=== PATIENT | male | born 1945 | race Two or more races ===

== ENCOUNTER 2017-09-04 12:44 | Inpatient (IN) | payer MEDICARE, OTHER ==
--- NOTE | 2017-09-04 13:38 | PDOC ---
History of Present Illness - General Chief Complaint: Shortness of Breath Stated Complaint: SOB Time Seen by Provider: 09/04/17 13:10 - History of Present Illness Initial Comments: 09/04/17 14:19 The patient is a 72 year old male with a history of HTN, HLD, Afib s/p pacemaker , CAD r/p stenting who presents for evaluation of SOB. The patient reports worsening SOB at rest and dyspnea on exertion over the past 2-3 days prompting his presentation to the ED for evaluation. The patient otherwise denies fevers , chills, chest pain, nausea, vomiting, abdominal pain, leg swelling, recent long travel, or changes with urination or bowel movements. Past History - Past Medical History Allergies/Adverse Reactions: Allergies Allergy/AdvReac Type Severity Reaction Status Date / Time No Known Allergies Allergy Verified 09/04/17 12:51 Home Medications: Ambulatory Orders Digoxin [Lanoxin -] 0.25 mg PO DAILY 11/15/12 Metoprolol Succinate [Toprol XL -] 12.5 mg PO DAILY #0 tab.sr.24h 11/18/12 Clopidogrel Bisulfate [Plavix -] 75 mg PO DAILY 12/08/15 Enalapril Maleate [Vasotec -] 10 mg PO DAILY 12/08/15 Hydrochlorothiazide [Hctz -] 25 mg PO DAILY 12/08/15 Warfarin Sodium [Coumadin] 4 mg PO DAILY 12/08/15 Cardiac Disorders: Yes COPD: No - Surgical History Cardiac Surgery: Yes (PACEMAKER, STENTS) - Immunization History Immunization Up to Date: Yes - Suicide/Smoking/Psychosocial Hx Smoking Status: No Smoking History: Never smoked Number of Cigarettes Smoked Daily: 0 Hx Alcohol Use: No Drug/Substance Use Hx: No Substance Use Type: None Review of Systems - Review of Systems Comments:: 09/04/17 14:22 Constitutional: No fevers, chills, fatigue, malaise HEENT: No Rhinorrhea, nasal congestion, visual changes Cardiovascular: No chest pain, syncope, palpitations, lightheadedness Respiratory: SOB. No Cough, Hemoptysis, Gastrointestinal: No Abdominal pain, Nausea, Vomiting, Constipation, Diarrhea, Melena Genitourinary: No Dysuria, Frequency, Urgency, Hesitancy, Hematuria, Flank pain Musculoskeletal: No Myalgia, arthralgia Skin: No rashes, itching, bruising, pallor Neurologic: No Headache, Dizziness, Numbness, Weakness, or Tingling Psychiatric: No Hallucinations. No SI or HI *Physical Exam - Vital Signs Last Vital Signs Temp Pulse Resp BP Pulse Ox 97.4 F L 119 H 20 143/95 98 09/04/17 12:51 09/04/17 12:51 09/04/17 12:51 09/04/17 12:51 09/04/17 12:51 - Physical Exam Comments: 09/04/17 14:24 General Appearance: Nourished. No Apparent Distress HEENT: EOMI, CRISTIAN. No Pharyngeal Erythema, Tonsillar Exudate, Tonsillar Erythema Neck: No Cervical Lymphadenopathy Respiratory/Chest: Lungs Clear, Normal Breath Sounds. No Crackles, Rales, Rhonchi, Wheezing Cardiovascular: Regular Rhythm, Tachycardic Rate. No Murmur, Gallops, Rubs Gastrointestinal/Abdominal: Normal Bowel Sounds, Soft. No Guarding, Rebound, Tenderness Musculoskeletal: No CVA Tenderness Extremity: Normal Capillary Refill Integumentary: Normal Color, Dry, Warm Neurologic: Fully Oriented, Alert, Normal Mood/Affect, Normal Response, Heart Score/ECG Review #1 ECG reviewed & interpreted by me at: 14:25 (Biventricularly paced rhythm at a rate of 120) General ECG Interpretation: Normal Intervals, No acute ischemic changes ED Treatment Course - LABORATORY CBC & Chemistry Diagram: 09/04/17 13:55 09/04/17 13:55 - RADIOLOGY Radiology Studies Ordered: Category Date Time Status CHEST X-RAY PORTABLE* [RAD] Stat Radiology 09/04/17 13:37 Ordered Medical Decision Making - Medical Decision Making 09/04/17 14:26 The patient is a 72 year old male with a history of HTN, HLD, Afib s/p pacemaker , CAD r/p stenting who presents for evaluation of SOB. Differential includes but is not limited to: ACS, Arrhythmia, Pneumonia, Pacer malfunction, infectious , metabolic derangement. Given the patient's symptoms, we will obtain a cbc, cmp, troponin, chest plain film and EKG to evaluate further. We will continue to monitor and reassess. *DC/Admit/Observation/Transfer Diagnosis at time of Disposition: SOB (shortness of breath), Tachycardia - Discharge Dispostion Condition at time of disposition: Stable Admit: Yes - Referrals Referrals: Bharat Archer MD [Primary Care Provider] - - Patient Instructions - Post Discharge Activity
[2017-09-04 14:07] LABS: BASO % 0.6 % (0-2.0); EOS % 0.5 % (0-4.5); HEMATOCRIT 46.8 % (35.4-49); HEMOGLOBIN 15.7 GM/dL (11.7-16.9); LYMPH % 21.3 % (8-40); MCH 29.7 pg (25.7-33.7); MCHC 33.6 g/dl (32.0-35.9); MEAN CELL VOLUME 88.2 fl (80-96); MEAN PLT VOLUME 9.7 fl (7.5-11.1); MONO % 10.5 % (3.8-10.2); NEUT % 67.1 % (42.8-82.8); PLATELET COUNT 147 K/MM3 (134-434); RBC 5.31 M/mm3 (4.00-5.60); RDW 15.6 % (11.9-15.9); WHITE BLOOD COUNT 6.7 K/mm3 (4.0-10.0)
[2017-09-04 14:31] LABS: ALBUMIN 3.4 g/dl (3.4-5.0); ANION GAP 9 (8-16); BLOOD UREA NITROGEN 24 mg/dL (7-18); CALCIUM 8.3 mg/dL (8.5-10.1); CHLORIDE 108 mmol/L (98-107); CO2 21 mmol/L (21-32); GLUCOSE,RANDOM 121 mg/dL (74-106); SODIUM 138 mmol/L (136-145)
[2017-09-04 14:37] LABS: ALK PHOS 104 U/L (45-117); BILIRUBIN,TOTAL 0.7 mg/dL (0.2-1.0); CREATININE 0.9 mg/dL (0.7-1.3); N-TERMINAL BNP 6066.45 pg/ml (5-125); SGPT/ALT 81 U/L (12-78); TOT PROT 6.8 g/dl (6.4-8.2)
[2017-09-04 14:38] LABS: SGOT/AST 77 U/L (15-37)
[2017-09-04 14:39] LABS: POTASSIUM 4.6 mmol/L (3.5-5.1)
--- NOTE | 2017-09-04 15:08 | EKG ---
Test Reason : Blood Pressure : / mmHG Vent. Rate : 122 BPM Atrial Rate : 150 BPM P-R Int : 000 ms QRS Dur : 178 ms QT Int : 474 ms P-R-T Axes : 000 169 248 degrees QTc Int : 675 ms Ventricular-paced rhythm Biventricular pacemaker detected ABNORMAL ECG WHEN COMPARED WITH ECG OF 08-DEC-2015 10:43, VENT. RATE HAS INCREASED BY 56 BPM Confirmed by JUANITA DIAZ MD ([id number]) on 09/04/2017 3:07:55 PM Referred By: Confirmed By:JUANITA DIAZ MD
[2017-09-04 16:29] LABS: INR 3.01 (0.82-1.09)
--- NOTE | 2017-09-04 16:29 | PDOC ---
Attending Attestation - Resident Resident Name: Justin Barnes - ED Attending Attestation I have performed the following: I have examined & evaluated the patient, The case was reviewed & discussed with the resident, I agree w/resident's findings & plan, Exceptions are as noted - HPI HPI: 09/04/17 16:24 "The patient is a 72 year old male, with a significant past medical history of AFib(s/p pacemaker, on Plavix and Coumadin), CAD(s/p stents), and hypertension, who presents to the emergency department with worsening shortness of breath over the past 2 days. Patient reports shortness of breath with exertion and at rest. He denies any associated chest pain, diaphoresis, or palpitations. He denies any abdominal pain, nausea, or vomiting. He denies any recent travel or sick contacts. Assistant Professor Of Biology: Dr. Archer " - Physicial Exam PE: 09/04/17 16:29 "GENERAL: Awake, alert, and fully oriented, in no acute distress HEAD: No signs of trauma EYES: PERRLA, EOMI, sclera anicteric, conjunctiva clear ENT: Auricles normal inspection, hearing grossly normal, nares patent, oropharynx clear without exudates. Moist mucosa NECK: Nontender, no stepoffs, Normal ROM, supple, no lymphadenopathy, JVD, or masses LUNGS: Breath sounds equal, clear to auscultation bilaterally. No wheezes, and no crackles HEART: Regular rate and rhythm, normal S1 and S2, no murmurs, rubs or gallops ABDOMEN: Soft, nontender, normoactive bowel sounds. No guarding, no rebound. No masses EXTREMITIES: Normal range of motion, no edema. No clubbing or cyanosis. No cords, erythema, or tenderness NEUROLOGICAL: Cranial nerves II through XII intact. 5/5 strength and sensation in all extremities, Normal speech, normal gait, normal cerebellar function SKIN: Warm, Dry, normal turgor, no rashes or lesions noted. " - Medical Decision Making 09/04/17 16:30 72 M with SOB. Vitals notable for tachycardia ~120. EKG shows paced rhythm at rate of 120. Concerning for possible pacemaker mediated tachycardia. Pt will need pacer interrogated. Will also evaluate for other cardiac pathology. - Labs, trop, BNP - CXR - Pacemaker interrogation 09/04/17 17:15 Pt with elevated troponin 0.19 (has chronically elevated trop at baseline ~0.18) , elevated BNP Pt to be admitted for trending of trops, echo, and pacemaker interogation Case discussed in detail with admitting physician including history, physical exam and ancillary studies. Admitting physician has assumed care for the patient and will follow all pending diagnostics and complete the evaluation and treatment.
--- NOTE | 2017-09-04 16:42 | HP ---
Admitting History and Physical - Admission History of Present Illness: This is a 72 year old male with pmhx of A fib s/p pacemaker on coumadin in [facility], CAD s/p 2 stents (on plavix, placed in [place]), HTN and presented to the ED with shortness of breath for 2 days. PT was scheduled to have his pacemaker changed last week but it was postponed d/t insurance. He saw his coin counter and wrapper Dr. Archer last week, no reported issues. In the last 2 days he reports increased shortness of breath with ambulation, resting and tachypnea. He denies chest pain, cough, sputum production, lower ext swelling. [employer] Rep called for Pacemaker interrogation History Source: Patient, Family Member Limitations to Obtaining History: No Limitations - Past Medical History Cardiovascular: Yes: CAD, HTN, Hyperlipdemia - Past Surgical History Past Surgical History: Yes: Permanent Pacemaker - Smoking History Smoking history: Never smoked Aproximately how many cigarettes per day: 0 - Alcohol/Substance Use Hx Alcohol Use: No History of Substance Use: reports: None - Social History Usual Living Arrangement: Yes: With Child ADL: Independent History of Recent Travel: No Home Medications - Allergies Allergies/Adverse Reactions: Allergies Allergy/AdvReac Type Severity Reaction Status Date / Time No Known Allergies Allergy Verified 09/04/17 12:51 - Home Medications Home Medications: Ambulatory Orders Digoxin [Lanoxin -] 0.25 mg PO DAILY 11/15/12 Metoprolol Succinate [Toprol XL -] 12.5 mg PO DAILY #0 tab.sr.24h 11/18/12 Clopidogrel Bisulfate [Plavix -] 75 mg PO DAILY 12/08/15 Enalapril Maleate [Vasotec -] 10 mg PO DAILY 12/08/15 Hydrochlorothiazide [Hctz -] 25 mg PO DAILY 12/08/15 Warfarin Sodium [Coumadin] 4 mg PO DAILY 12/08/15 Review of Systems - Review of Systems Constitutional: reports: No Symptoms Eyes: reports: No Symptoms HENT: reports: No Symptoms Neck: reports: No Symptoms Cardiovascular: reports: Shortness of Breath Respiratory: reports: SOB on Exertion Gastrointestinal: reports: No Symptoms Genitourinary: reports: No Symptoms Musculoskeletal: reports: No Symptoms Integumentary: reports: No Symptoms Neurological: reports: No Symptoms Endocrine: reports: No Symptoms Hematology/Lymphatic: reports: No Symptoms Psychiatric: reports: No Symptoms Physical Examination Vital Signs: Vital Signs Temperature 97.4 F L 09/04/17 12:51 Pulse Rate 108 H 09/04/17 15:58 Respiratory Rate 22 09/04/17 15:58 Blood Pressure 133/107 09/04/17 15:58 O2 Sat by Pulse Oximetry (%) 99 09/04/17 15:58 Constitutional: Yes: Well Nourished Eyes: Yes: Conjunctiva Clear HENT: Yes: Atraumatic Neck: Yes: Supple Cardiovascular: Yes: Regular Rate and Rhythm, S1, S2 Respiratory: Yes: Regular, CTA Bilaterally Gastrointestinal: Yes: Normal Bowel Sounds, Soft Renal/: Yes: WNL Musculoskeletal: Yes: WNL Extremities: Yes: WNL Edema: No Peripheral Pulses WNL: Yes Neurological: Yes: Alert, Oriented, Cran Nerves II-XII Intact Psychiatric: Yes: Alert, Oriented Labs: CBC, BMP 09/04/17 13:55 09/04/17 13:55 Imaging - Results Chest X-ray: Report Reviewed, Image Reviewed EKG: Report Reviewed (v paced) Problem List - Problems (1) SOB (shortness of breath) Code(s): R06.02 - SHORTNESS OF BREATH (2) Tachycardia Code(s): R00.0 - TACHYCARDIA, UNSPECIFIED Assessment/Plan Assessment: 72 year old male admitted with worsening sob Plan: 1. Acute SOB - Possible misfiring/malfunctioning pacemaker - [employer] rep called, will see pt tomorrow - Monitor on telemetry - Supplemental o2 as needed - Cardiology consulted 2. A fib - Coumadin 4mg HS - Digoxin 0.25mg daily - Toprol xl 12.5mg daily 3. CAD s/p stents, pacemaker - Plavix - BB, RADHA 4. HTN - Vasotec 10mg daily - HCTZ 25mg daily - Visit type - Emergency Visit Emergency Visit: Yes ED Registration Date: 09/04/17 Care time: The patient presented to the Emergency Department on the above date and was hospitalized for further evaluation of their emergent condition. - New Patient This patient is new to me today: Yes Date on this admission: 09/04/17 - Critical Care Critical Care patient: No Hospitalist Screening - Colonoscopy Questionnaire Colonoscopy Questionnaire: Colonoscopy Questionnaire - Patient: 50 - 75 years old and never had a screening colonoscopy: Unknown History of colon or rectal polyps, or CA: Unknown History of IBD, Crohn's disease or UC: Unknown History of abdominal radiation therapy as a child: Unknown - Relative: 1 with colon or rectal CA, or polyps at age 60 or younger: Unknown Colon or rectal CA diagnosed at age 45 or younger: Unknown Multiple relatives with colon or rectal CA: Unknown - Outcome: Screening Result: Negative Screen
[2017-09-04 17:48] VITALS: BMI 20.9
[2017-09-04] MEDS: WARFARIN NA 2 MG TABLET (UD) PO SCH (18:06)
[2017-09-04] MEDS ORDERED: metoPROLOL SUCCINATE 25 MG TAB.SR.24H (FP) PO ONE (18:43)
[2017-09-04] MEDS ORDERED: DIGOXIN 0.25 MG TABLET (FP) PO ONE (18:43)
[2017-09-04] MEDS ORDERED: CLOPIDOGREL BISULFATE 75 MG TABLET (FP) PO ONE (20:00)
[2017-09-05 06:51] LABS: BASO % 0.4 % (0-2.0); EOS % 0.2 % (0-4.5); HEMATOCRIT 45.2 % (35.4-49); HEMOGLOBIN 15.6 GM/dL (11.7-16.9); LYMPH % 17.3 % (8-40); MCH 30.1 pg (25.7-33.7); MCHC 34.5 g/dl (32.0-35.9); MEAN CELL VOLUME 87.2 fl (80-96); MEAN PLT VOLUME 10.2 fl (7.5-11.1); MONO % 10.6 % (3.8-10.2); NEUT % 71.5 % (42.8-82.8); PLATELET COUNT 126 K/MM3 (134-434); RBC 5.19 M/mm3 (4.00-5.60); RDW 15.4 % (11.9-15.9); WHITE BLOOD COUNT 8.7 K/mm3 (4.0-10.0)
[2017-09-05 07:21] LABS: ALBUMIN 3.2 g/dl (3.4-5.0); ANION GAP 11 (8-16); BILIRUBIN,TOTAL 1.2 mg/dL (0.2-1.0); BLOOD UREA NITROGEN 25 mg/dL (7-18); CHLORIDE 108 mmol/L (98-107); CO2 18 mmol/L (21-32); CREATININE 0.8 mg/dL (0.7-1.3); GLUCOSE,RANDOM 98 mg/dL (74-106); PHOSPHOROUS 2.7 mg/dL (2.5-4.9); SGPT/ALT 62 U/L (12-78); SODIUM 137 mmol/L (136-145); TOT PROT 6.3 g/dl (6.4-8.2)
[2017-09-05 07:22] LABS: ALK PHOS 91 U/L (45-117)
[2017-09-05 07:26] LABS: MAGNESIUM 1.9 mg/dL (1.8-2.4); POTASSIUM 5.2 mmol/L (3.5-5.1)
[2017-09-05 07:27] LABS: SGOT/AST 51 U/L (15-37)
[2017-09-05] MEDS ORDERED: FUROSEMIDE 40 MG/4 ML INJECTABLE VIAL IVPUSH ONE (08:30)
[2017-09-05] MEDS: metoPROLOL SUCCINATE 25 MG TAB.SR.24H (FP) PO SCH (09:10)
[2017-09-05] MEDS: DIGOXIN 0.25 MG TABLET (FP) PO SCH (09:12)
[2017-09-05] MEDS: CLOPIDOGREL BISULFATE 75 MG TABLET (FP) PO SCH (09:12)
[2017-09-05] MEDS: ENALAPRIL MALEATE 10 MG TABLET (FP) PO SCH (09:12)
--- NOTE | 2017-09-05 09:13 | CON.CARD ---
Consult Consult Specialty:: Cardiology Referred by:: Dr. Burton Reason for Consultation:: SOB - History of Present Illness Chief Complaint: QUESADA x 1 day History of Present Illness: 72M w/ ICM s/p biV ICD, PAF on coumadin presents to ER w one day PND/orthopnea. Forgot to take his meds for 1-2 days and symptoms began. Denies palps, ICD shocks or chest pain, no edema. BNP markedly elevated. Of note, ICD battery OLINDA was scheduled for elective battery change this week at [facility] but due to insurance issue it was rescheduled. - History Source History Provided By: Patient, Medical Record - Past Medical History Cardio/Vascular: Yes: CAD, HTN, Hyperlipdemia Pulmonary: No: Asthma, Bronchitis, Cancer, COPD, O2 Dependent, Pneumonia, Previously Intubated, Pulmonary Embolus, Pulmonary Fibrosis, Sleep Apnea, Other Gastrointestinal: No: Ascites, Cancer, Constipation, Crohn's Disease, Diverticulitis, Diverticulosis, Esophageal Varices, Gastritis, GERD, GI Bleed, Hemorrhoids, Hiatal Hernia, Inflamatory Bowel Disease, Irritable Bowel Disease, Pancreatitis, Peptic Ulcer Disease, Ulcerative Colitis, Other Hepatobiliary: No: Cirrhosis, Cholelithiasis, Cholecystitis, Choledocholithiasis , Hepatitis A, Hepatitis B, Hepatitis C, Other Renal/: No: Renal Failure, Renal Inusuff, BPH, Cancer, Hematuria, Hemodialysis , Neurogenic Bladder, Renal Calculi, UTI, Other Heme/Onc: No: Anemia, B12 Deficiency, Bleeding Disorder, Cancer, Current Chemotherapy, Current Radiation Therapy, Hemochromatosis, Hypercoaguable State, Myeloproliferative Synd, Sickle Cell Disease, Sickle Cell Trait, Thrombocytopenia, Other Infectious Disease: No: AIDS, C-Diff, Herpes Zoster, HIV, MRSA, STD's, Tuberculosis, VREF, Other Psych: No: Addictions, Anxiety, Bipolar, Depression, Panic, Psychosis, Schizophrenia, Other Musculoskeletal: No: Bursitis, Chronic low back pain, Hemiparesis, Hemiplegia, Osteoarthritis, Paraplegia, Other Rheumatology: No: Fibromyalgia, Gout, Lupus, Rheumatoid Arthritis, Sarcoidosis, Vasculitis, Other ENT: No: Allergic Rhinitis, Sinusitis, Other Endocrine: No: Jefferson's Disease, [place]'s Disease, Diabetes Insipidus, Diabetes Mellitus, Hyperparathyroidism, Hyperthyroidism, Hypothyroidism, Osteopenia, SIADH, Other - Past Surgical History Past Surgical History: Yes: Permanent Pacemaker Additional Surgical History: BIV ICD (MEDTR[employer]IC) - Alcohol/Substance Use Hx Alcohol Use: No History of Substance Use: reports: None - Smoking History Smoking history: Never smoked Have you smoked in the past 12 months: No Aproximately how many cigarettes per day: 0 - Social History ADL: Independent History of Recent Travel: No Home Medications - Allergies Allergies/Adverse Reactions: Allergies Allergy/AdvReac Type Severity Reaction Status Date / Time No Known Allergies Allergy Verified 09/04/17 12:51 - Home Medications Home Medications: Ambulatory Orders Digoxin [Lanoxin -] 0.25 mg PO DAILY 11/15/12 Metoprolol Succinate [Toprol XL -] 12.5 mg PO DAILY #0 tab.sr.24h 11/18/12 Clopidogrel Bisulfate [Plavix -] 75 mg PO DAILY 12/08/15 Enalapril Maleate [Vasotec -] 10 mg PO DAILY 12/08/15 Hydrochlorothiazide [Hctz -] 25 mg PO DAILY 12/08/15 Warfarin Sodium [Coumadin] 4 mg PO DAILY 12/08/15 Family Disease History - Family Disease History Family History: Unremarkable (non-contributory to this presentation) - Risk Factors Known Risk Factors: Yes: Other (Known ICM) Vital Signs: Vital Signs Temperature 98.3 F 09/05/17 05:00 Pulse Rate 113 H 09/05/17 05:00 Respiratory Rate 20 09/05/17 05:00 Blood Pressure 134/96 09/05/17 05:00 O2 Sat by Pulse Oximetry (%) 99 09/04/17 19:44 Constitutional: Yes: No Distress Eyes: Yes: Conjunctiva Clear Neck: Yes: Supple Respiratory: Yes: Other (slight decreased breath sounds at bases.) Gastrointestinal: Yes: Soft JVD: Yes Carotid Bruit: No PMI: Non-Displaced Heart Sounds: Yes: S1, S2 Edema: No Peripheral Pulses WNL: Yes Integumentary: Yes: WNL Neurological: Yes: Alert, Oriented ...Motor Strength: WNL Psychiatric: Yes: WNL - Other Data Labs, Other Data: CBC, BMP 09/05/17 06:15 09/05/17 06:15 INR, PTT INR 3.01 (0.82-1.09) H D 09/04/17 16:00 Troponin, BNP 09/04/17 09/04/17 13:55 20:15 Troponin I 0.19 H 0.20 H B-Natriuretic Peptide 6066.45 H Troponin, BNP 09/04/17 09/04/17 13:55 20:15 Troponin I 0.19 H 0.20 H B-Natriuretic Peptide 6066.45 H Laboratory Tests 09/04/17 09/04/17 09/04/17 13:55 16:00 20:15 WBC Hct Plt Count INR 3.01 H D Sodium Potassium Creatinine Creatine Kinase 53 42 Troponin I 0.19 H 0.20 H B-Natriuretic Peptide 6066.45 H 09/05/17 09/05/17 06:15 06:15 WBC 8.7 Hct 45.2 Plt Count 126 L INR Sodium 137 Potassium 5.2 H Creatinine 0.8 Creatine Kinase Troponin I B-Natriuretic Peptide BiV paced. TELE: Paced, no sig V ectopy Echo: Pending Prior Cardiac Procedures: PTCA with Stent Ejection Fraction %: LVEF < 40 % Imaging - Results Chest X-ray: Image Reviewed EKG: Image Reviewed Problem List - Problems (1) Acute on chronic systolic CHF (congestive heart failure) Code(s): I50.23 - ACUTE ON CHRONIC SYSTOLIC (CONGESTIVE) HEART FAILURE (2) PAF (paroxysmal atrial fibrillation) Code(s): I48.0 - PAROXYSMAL ATRIAL FIBRILLATION (3) Anticoagulation management encounter Code(s): Z51.81 - ENCOUNTER FOR THERAPEUTIC DRUG LEVEL MONITORING; Z79.01 - SENIOR CARE (CURRENT) USE OF ANTICOAGULANTS (4) Biventricular ICD (implantable cardioverter-defibrillator) in place Code(s): Z95.810 - PRESENCE OF AUTOMATIC (IMPLANTABLE) CARDIAC DEFIBRILLATOR (5) SOB (shortness of breath) Code(s): R06.02 - SHORTNESS OF BREATH Assessment/Plan IMP: Acute on chronic systolic CHF exacerbation, possibly due to med non-compliance Underlying Ischemic CM with prior PCI PAF BiV ICD w/ batter at Elective Replacement Interval (OLINDA) REC: 1. CHF: -Mild exacerbation -Start Lasix 40mg IV daily -Daily lytes -Echo -Cycle C.E. 2. PAF: -INR goal 2-3 -ICD interrogation, cont. Tele -Cont. Dig. and other home meds 3. CAD: -Remote h/o PCI, chronic underlying CAD -Cycle enzymes -Plavix -If enzymes remain flat and clinically improves, will plan for outpatient stress test 4. BiV ICD ([employer]): -Please call for interrogation to r/o AF w/ RVR as precipitant -Battery known to be @ OLINDA, planned for outpatient battery change.
--- NOTE | 2017-09-05 09:57 | PN ---
Physical Exam: SUBJECTIVE: Patient seen and examined.He states he still had sob overnight, however today it is better. He ambulated with resp distress OBJECTIVE: Vital Signs Period Temp Pulse Resp BP Sys/Nunez Pulse Ox Last 24 Hr 97.4 F-98.5 F 102-125 20-22 121-143/80-107 98-100 PE Neuro: alert, awake,cn 2-12intact Pulm: course bases no wheezing CV: s1 s2 tachycardia Abd: s nt nd + bs ExT: no le edema, warm Laboratory Results - last 24 hr 09/04/17 09/04/17 09/05/17 16:00 20:15 06:15 WBC 8.7 RBC 5.19 Hgb 15.6 Hct 45.2 MCV 87.2 MCH 30.1 MCHC 34.5 RDW 15.4 Plt Count 126 L MPV 10.2 Neutrophils % 71.5 Lymphocytes % 17.3 Monocytes % 10.6 H Eosinophils % 0.2 Basophils % 0.4 PT with INR 34.00 H INR 3.01 H D PTT (Actin FS) Sodium Potassium Chloride Carbon Dioxide Anion Gap BUN Creatinine Creat Clearance w eGFR Random Glucose Calcium Phosphorus Magnesium Total Bilirubin AST ALT Alkaline Phosphatase Creatine Kinase 42 Troponin I 0.20 H B-Natriuretic Peptide Total Protein Albumin 09/05/17 06:15 WBC RBC Hgb Hct MCV MCH MCHC RDW Plt Count MPV Neutrophils % Lymphocytes % Monocytes % Eosinophils % Basophils % PT with INR INR PTT (Actin FS) Sodium 137 Potassium 5.2 H Chloride 108 H Carbon Dioxide 18 L Anion Gap 11 BUN 25 H Creatinine 0.8 Creat Clearance w eGFR > 60 Random Glucose 98 Calcium 8.0 L Phosphorus 2.7 Magnesium 1.9 Total Bilirubin 1.2 H D AST 51 H D ALT 62 D Alkaline Phosphatase 91 Creatine Kinase Troponin I B-Natriuretic Peptide Total Protein 6.3 L Albumin 3.2 L Active Medications Generic Name Dose Route Start Last Admin Trade Name Freq PRN Reason Stop Dose Admin Clopidogrel Bisulfate 75 mg 09/05/17 10:00 09/05/17 09:12 Plavix - PO 75 mg DAILY MILAGROS Administration Digoxin 0.25 mg 09/05/17 10:00 09/05/17 09:12 Lanoxin - PO 0.25 mg DAILY MILAGROS Administration Enalapril Maleate 10 mg 09/05/17 10:00 09/05/17 09:12 Vasotec - PO 10 mg DAILY MILAGROS Administration Metoprolol Succinate 12.5 mg 09/05/17 10:00 09/05/17 09:10 Toprol Xl - PO 12.5 mg DAILY MILAGROS Administration Warfarin Sodium 4 mg 09/04/17 18:00 09/04/17 18:06 Coumadin - PO Not Given DAILY@1800 [facility] Assessment: 72 year old male with afib s/p pacemaker on coumadin in [facility], CAD s/p 2 stents (on [place]av[place], placed in [place]), HTN and presented to the ED with shortness of breath for 2 days. Plan: 1. Acute on chronic CHF - Due to missed medication doses vs possible misfiring/malfunctioning pacemaker - Start lasix 40mg IV daily - ECHO ordered - D/w Cardiology 2. A fib - Coumadin 4mg HS - Digoxin 0.25mg daily - Toprol xl 12.5mg daily - Check INR 3. CAD s/p stents, pacemaker - Trend CE, obtain trop now - [employer] rep to interrogate PPM today - If trops not improved, stress as outpt - Plavix - BB, RADHA 4. HTN - Vasotec 10mg daily - HCTZ 25mg daily -Toprol 5. DVT - On coumadin Problem List - Problems (1) SOB (shortness of breath) Code(s): R06.02 - SHORTNESS OF BREATH (2) Tachycardia Code(s): R00.0 - TACHYCARDIA, UNSPECIFIED Visit type - Emergency Visit Emergency Visit: Yes ED Registration Date: 09/05/17 Care time: The patient presented to the Emergency Department on the above date and was hospitalized for further evaluation of their emergent condition. - New Patient This patient is new to me today: No - Critical Care Critical Care patient: No
[2017-09-05] MEDS ORDERED: HYDROCHLOROTHIAZIDE 25 MG TABLET (FP) PO SCH (10:00)
[2017-09-05] MEDS: FUROSEMIDE 40 MG/4 ML INJECTABLE VIAL IVPUSH SCH (10:12)
[2017-09-05 11:10] LABS: INR 2.2 (0.82-1.09); PROTHROMBIN TIME (PATIENT) 24.9 SEC (9.98-11.88)
[2017-09-05] MEDS: WARFARIN NA 2 MG TABLET (UD) PO SCH (17:34)
[2017-09-06 06:48] LABS: ANION GAP 9 (8-16); BLOOD UREA NITROGEN 25 mg/dL (7-18); CALCIUM 8.7 mg/dL (8.5-10.1); CHLORIDE 103 mmol/L (98-107); CO2 26 mmol/L (21-32); GLUCOSE,RANDOM 79 mg/dL (74-106); POTASSIUM 4.3 mmol/L (3.5-5.1); SODIUM 138 mmol/L (136-145)
[2017-09-06 07:09] LABS: INR 2.27 (0.82-1.09); PROTHROMBIN TIME (PATIENT) 25.7 SEC (9.98-11.88)
--- NOTE | 2017-09-06 08:30 | PN ---
Physical Exam: SUBJECTIVE: Patient seen and examined OBJECTIVE: instruments sales representative shows paced rhythm 80s with PVCs PPM interrogated INR 2.27 Vascular study 10/2015 negative for DVT, Vascular study 03/01/15 negative for DVT Vital Signs Period Temp Pulse Resp BP Sys/Nunez Pulse Ox Last 24 Hr 97.6 F-99.6 F 65-105 18-20 103-125/57-100 96-97 GENERAL: The patient is awake, alert, and fully oriented, in no acute distress. HEAD: Normal with no signs of trauma. EYES: PERRL, extraocular movements intact, sclera anicteric, conjunctiva clear. No ptosis. ENT: Ears normal, nares patent, oropharynx clear without exudates, moist mucous membranes. NECK: Trachea midline, full range of motion, supple. LUNGS: Breath sounds equal, clear to auscultation anteriorly HEART: instruments sales representative shows paced rhythm 80s with PVCs PPM interrogated ABDOMEN: Soft, nontender, nondistended, normoactive bowel sounds, no guarding, no rebound, no hepatosplenomegaly, no masses. EXTREMITIES: no edema. NEUROLOGICAL: Normal speech, gait not observed. PSYCH: Normal mood, normal affect. SKIN: Warm, dry, normal turgor, no rashes or lesions noted Laboratory Results - last 24 hr 09/05/17 09/05/17 09/05/17 10:31 10:31 18:00 PT with INR 24.90 H INR 2.20 H Sodium Potassium Chloride Carbon Dioxide Anion Gap BUN Creatinine Random Glucose Calcium Creatine Kinase 41 47 Troponin I 0.27 H D 0.18 H D 09/06/17 09/06/17 05:05 05:05 PT with INR 25.70 H INR 2.27 H Sodium 138 Potassium 4.3 Chloride 103 Carbon Dioxide 26 D Anion Gap 9 BUN 25 H Creatinine 1.0 D Random Glucose 79 Calcium 8.7 Creatine Kinase Troponin I Active Medications Generic Name Dose Route Start Last Admin Trade Name Freq PRN Reason Stop Dose Admin Clopidogrel Bisulfate 75 mg 09/05/17 10:09/05/17 09:12 Plavix - PO 75 mg DAILY MILAGROS Administration Digoxin 0.25 mg 09/05/17 10:09/05/17 09:12 Lanoxin - PO 0.25 mg DAILY MILAGROS Administration Enalapril Maleate 10 mg 09/05/17 10:09/05/17 09:12 Vasotec - PO 10 mg DAILY MILAGROS Administration Furosemide 40 mg 09/05/17 10:00 09/05/17 10:12 Lasix Injection - IVPUSH Not Given DAILY [facility] Metoprolol Succinate 12.5 mg 09/05/17 10:00 09/05/17 09:10 Toprol Xl - PO 12.5 mg DAILY MILAGROS Administration Warfarin Sodium 4 mg 09/04/17 18:00 09/05/17 17:34 Coumadin - PO 4 mg DAILY@1800 MILAGROS Administration ASSESSMENT/PLAN: Patient is a 72 year old male with a signifiicant past medical history of atiral fibrillation (s/p ppm on Coumadin) and hypertension. Patient presents to the ED on 09/05/2017 with complaints of worsening shortness of breath over the last 48 hours prior to admission. The shortness of breath occurred during rest and with ambulation. He denies any chest pain on admission. On exam, he was in bed, resting, tolerating room air. Denies shortness of breath, denies abdominal pain, nausea or vomiting. Cardiology: Shortness of breath, improving Tolerating room air at rest On Lasix 40mg iv push daily Monitor daily weights, intake and output Respiratory pre and post prior to d/c PPM interrogated Cardiology following Atril fibrillation On Toprol 12.5mg daily Enalapril 10mg Digoxin 0.25mg Coumadin 4mg daily F.E.N. Fluids: tolerating PO Electrolytes: monitor Nutrition: low sodium Prophylaxis: DVT: ambulatory GI: deferred Disposition: full code
[2017-09-06] MEDS: CLOPIDOGREL BISULFATE 75 MG TABLET (FP) PO SCH (09:53)
[2017-09-06] MEDS: DIGOXIN 0.25 MG TABLET (FP) PO SCH (09:53)
[2017-09-06] MEDS: FUROSEMIDE 40 MG/4 ML INJECTABLE VIAL IVPUSH SCH (09:53)
[2017-09-06] MEDS: ENALAPRIL MALEATE 10 MG TABLET (FP) PO SCH (09:55)
--- NOTE | 2017-09-06 09:57 | PN ---
Progress Note, Physician History of Present Illness: 72M w/ ICM s/p biV ICD, PAF on coumadin presents to ER w one day PND/orthopnea. Forgot to take his meds for 1-2 days and symptoms began. Denies palps, ICD shocks or chest pain, no edema. BNP markedly elevated. Of note, ICD battery OLINDA was scheduled for elective battery change this week at [facility] but due to insurance issue it was rescheduled. - Current Medication List Current Medications: Active Medications Clopidogrel Bisulfate (Plavix -) 75 mg PO DAILY [facility] Last Admin: 09/06/17 09:53 Dose: 75 mg Digoxin (Lanoxin -) 0.25 mg PO DAILY [facility] Last Admin: 09/06/17 09:53 Dose: 0.25 mg Enalapril Maleate (Vasotec -) 10 mg PO DAILY [facility] Last Admin: 09/06/17 09:55 Dose: 10 mg Furosemide (Lasix Injection -) 40 mg IVPUSH DAILY [facility] Last Admin: 09/06/17 09:53 Dose: 40 mg Metoprolol Succinate (Toprol Xl -) 12.5 mg PO DAILY [facility] Last Admin: 09/05/17 09:10 Dose: 12.5 mg Warfarin Sodium (Coumadin -) 4 mg PO DAILY@1800 [facility] Last Admin: 09/05/17 17:34 Dose: 4 mg - Objective Vital Signs: Vital Signs Temperature 97.8 F 09/06/17 08:45 Pulse Rate 93 H 09/06/17 09:53 Respiratory Rate 18 09/06/17 08:45 Blood Pressure 106/63 09/06/17 08:45 O2 Sat by Pulse Oximetry (%) 96 09/06/17 08:45 Eyes: Yes: WNL, Conjunctiva Clear, EOM Intact HENT: Yes: WNL, Atraumatic, Normocephalic Neck: Yes: WNL, Supple, Trachea Midline Cardiovascular: Yes: WNL, Regular Rate and Rhythm Respiratory: Yes: WNL, Regular, CTA Bilaterally Gastrointestinal: Yes: WNL, Normal Bowel Sounds Genitourinary: Yes: WNL Musculoskeletal: Yes: WNL Extremities: Yes: WNL Edema: No Integumentary: Yes: WNL Neurological: Yes: WNL, Alert, Oriented ...Motor Strength: WNL Psychiatric: Yes: WNL Labs: CBC, BMP 09/05/17 06:15 03/10/18 05:05 INR, PTT INR 2.27 (0.82-1.09) H 09/06/17 05:05 Assessment/Plan - Problems (1) Acute on chronic systolic CHF (congestive heart failure) Code(s): I50.23 - ACUTE ON CHRONIC SYSTOLIC (CONGESTIVE) HEART FAILURE (2) PAF (paroxysmal atrial fibrillation) Code(s): I48.0 - PAROXYSMAL ATRIAL FIBRILLATION (3) Anticoagulation management encounter Code(s): Z51.81 - ENCOUNTER FOR THERAPEUTIC DRUG LEVEL MONITORING; Z79.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 CHF: -Mild exacerbation -Start Lasix 40mg IV daily -Daily lytes -Echo -Cycle C.E. 2. PAF: -INR goal 2-3 -ICD interrogation, cont. Tele -Cont. Dig. and other home meds 3. CAD: -Remote h/o PCI, chronic underlying CAD -Cycle enzymes -Plavix -If enzymes remain flat and clinically improves, will plan for outpatient stress test 4. BiV ICD (Medtronic): -Please call for interrogation to r/o AF w/ RVR as precipitant -Battery known to be @ OLINDA, planned for outpatient battery change.
[2017-09-06] MEDS: metoPROLOL SUCCINATE 25 MG TAB.SR.24H (FP) PO SCH (10:51)
[2017-09-06] MEDS: WARFARIN NA 2 MG TABLET (UD) PO SCH (17:46)
[2017-09-06 18:05] LABS: ALK PHOS 103 U/L (45-117); ANION GAP 11 (8-16); BILIRUBIN,TOTAL 0.3 mg/dL (0.2-1.0); BLOOD UREA NITROGEN 26 mg/dL (7-18); CALCIUM 9.1 mg/dL (8.5-10.1); CHLORIDE 101 mmol/L (98-107); CO2 28 mmol/L (21-32); CREATININE 1.4 mg/dL (0.7-1.3); GLUCOSE,RANDOM 137 mg/dL (74-106); POTASSIUM 4.4 mmol/L (3.5-5.1); SGOT/AST 35 U/L (15-37); SGPT/ALT 48 U/L (12-78); SODIUM 140 mmol/L (136-145); TOT PROT 6.4 g/dl (6.4-8.2)
--- NOTE | 2017-09-07 09:27 | PN ---
Progress Note, Physician History of Present Illness: 72M w/ ICM s/p biV ICD, PAF on coumadin presents to ER w one day PND/orthopnea. Forgot to take his meds for 1-2 days and symptoms began. Denies palps, ICD shocks or chest pain, no edema. BNP markedly elevated. Of note, ICD battery OLINDA was scheduled for elective battery change this week at [facility] but due to insurance issue it was rescheduled. - Current Medication List Current Medications: Active Medications Clopidogrel Bisulfate (Plavix -) 75 mg PO DAILY [facility] Last Admin: 09/06/17 09:53 Dose: 75 mg Digoxin (Lanoxin -) 0.25 mg PO DAILY [facility] Last Admin: 09/06/17 09:53 Dose: 0.25 mg Enalapril Maleate (Vasotec -) 10 mg PO DAILY [facility] Last Admin: 09/06/17 09:55 Dose: 10 mg Furosemide (Lasix Injection -) 40 mg IVPUSH DAILY [facility] Last Admin: 09/06/17 09:53 Dose: 40 mg Metoprolol Succinate (Toprol Xl -) 12.5 mg PO DAILY [facility] Last Admin: 09/06/17 10:51 Dose: Not Given Warfarin Sodium (Coumadin -) 4 mg PO DAILY@1800 [facility] Last Admin: 09/06/17 17:46 Dose: 4 mg - Objective Vital Signs: Vital Signs Temperature 98.4 F 09/07/17 09:22 Pulse Rate 71 09/07/17 09:22 Respiratory Rate 18 09/07/17 09:22 Blood Pressure 112/77 09/07/17 09:22 O2 Sat by Pulse Oximetry (%) 97 09/07/17 07:15 Eyes: Yes: WNL, Conjunctiva Clear, EOM Intact HENT: Yes: WNL, Atraumatic, Normocephalic Neck: Yes: WNL, Supple, Trachea Midline Cardiovascular: Yes: WNL, Regular Rate and Rhythm Respiratory: Yes: WNL, Regular, CTA Bilaterally Gastrointestinal: Yes: WNL, Normal Bowel Sounds Genitourinary: Yes: WNL Musculoskeletal: Yes: WNL Extremities: Yes: WNL Edema: No Integumentary: Yes: WNL Neurological: Yes: WNL, Alert, Oriented ...Motor Strength: WNL Psychiatric: Yes: WNL Labs: CBC, BMP 09/05/17 06:15 09/06/17 17:15 INR, PTT INR 2.27 (0.82-1.09) H 09/06/17 05:05 Assessment/Plan - Problems (1) Acute on chronic systolic CHF (congestive heart failure) Code(s): I50.23 - ACUTE ON CHRONIC SYSTOLIC (CONGESTIVE) HEART FAILURE (2) PAF (paroxysmal atrial fibrillation) Code(s): I48.0 - PAROXYSMAL ATRIAL FIBRILLATION (3) Anticoagulation management encounter Code(s): Z51.81 - ENCOUNTER FOR THERAPEUTIC DRUG LEVEL MONITORING; Z79.01 - INTERIOR DESIGN PRINCIPAL (CURRENT) USE OF ANTICOAGULANTS (4) Biventricular ICD (implantable cardioverter-defibrillator) in place Code(s): Z95.810 - PRESENCE OF AUTOMATIC (IMPLANTABLE) CARDIAC DEFIBRILLATOR (5) SOB (shortness of breath) Code(s): R06.02 - SHORTNESS OF BREATH Assessment/Plan IMP: Acute on chronic systolic CHF exacerbation, possibly due to med non-compliance Underlying Ischemic CM with prior PCI PAF BiV ICD w/ batter at Elective Replacement Interval (OLINDA) REC: 1. CHF: -Mild exacerbation -Start Lasix 40mg IV daily -Daily lytes -Echo -Cycle C.E. 2. PAF: -INR goal 2-3 -ICD interrogation, cont. Tele -Cont. Dig. and other home meds 3. CAD: -Remote h/o PCI, chronic underlying CAD -Cycle enzymes -Plavix -If enzymes remain flat and clinically improves, will plan for outpatient stress test 4. BiV ICD (Medtronic): -Please call for interrogation to r/o AF w/ RVR as precipitant -Battery known to be @ OLINDA, planned for outpatient battery change. NSVT cont telemetry f/u electrolytes.
[2017-09-07] MEDS: CLOPIDOGREL BISULFATE 75 MG TABLET (FP) PO SCH (09:43)
[2017-09-07] MEDS: DIGOXIN 0.25 MG TABLET (FP) PO SCH (09:43)
[2017-09-07] MEDS: FUROSEMIDE 40 MG/4 ML INJECTABLE VIAL IVPUSH SCH (09:44)
[2017-09-07] MEDS: metoPROLOL SUCCINATE 25 MG TAB.SR.24H (FP) PO SCH (09:45)
[2017-09-07] MEDS: ENALAPRIL MALEATE 10 MG TABLET (FP) PO SCH (09:45)
[2017-09-07 10:09] LABS: BASO % 0.5 % (0-2.0); HEMATOCRIT 44.7 % (35.4-49); HEMOGLOBIN 15.2 GM/dL (11.7-16.9); LYMPH % 24.5 % (8-40); MCH 29.8 pg (25.7-33.7); MEAN CELL VOLUME 87.7 fl (80-96); MEAN PLT VOLUME 9.2 fl (7.5-11.1); MONO % 13.1 % (3.8-10.2); NEUT % 59.9 % (42.8-82.8); PLATELET COUNT 136 K/MM3 (134-434); RDW 14.9 % (11.9-15.9); WHITE BLOOD COUNT 6.1 K/mm3 (4.0-10.0)
--- NOTE | 2017-09-07 10:12 | PN ---
Physical Exam: SUBJECTIVE: Patient seen and examined at the bedside. Feels well, denies shortness of breath at rest. OBJECTIVE: hmga1c 6.3, boderline Will encourage diet modifications Vital Signs Period Temp Pulse Resp BP Sys/Nunez Pulse Ox Last 24 Hr 97.9 F-98.8 F 62-93 18-20 91-128/50-79 96-97 GENERAL: The patient is awake, alert, and fully oriented, in no acute distress. HEAD: Normal with no signs of trauma. EYES: PERRL, extraocular movements intact, sclera anicteric, conjunctiva clear. No ptosis. ENT: Ears normal, nares patent, oropharynx clear without exudates, moist mucous membranes. NECK: Trachea midline, full range of motion, supple. LUNGS: Breath sounds equal, clear to auscultation anteriorly HEART: cardiac technologist shows paced rhythm 80s with PVCs PPM interrogated ABDOMEN: Soft, nontender, nondistended, normoactive bowel sounds, no guarding, no rebound, no hepatosplenomegaly, no masses. EXTREMITIES: no edema. NEUROLOGICAL: Normal speech, gait not observed. PSYCH: Normal mood, normal affect. SKIN: Warm, dry, normal turgor, no rashes or lesions noted Laboratory Results - last 24 hr 09/06/17 09/06/17 09/06/17 05:05 17:15 17:15 Sodium 140 Potassium 4.4 Chloride 101 Carbon Dioxide 28 Anion Gap 11 BUN 26 H Creatinine 1.4 H D Creat Clearance w eGFR 49.82 Random Glucose 137 H D Calcium 9.1 Magnesium 2.1 Total Bilirubin 0.3 D AST 35 D ALT 48 D Alkaline Phosphatase 103 Troponin I 0.22 H Total Protein 6.4 Albumin 3.0 L Active Medications Generic Name Dose Route Start Last Admin Trade Name Freq PRN Reason Stop Dose Admin Clopidogrel Bisulfate 75 mg 09/05/17 10:00 09/07/17 09:43 Plavix - PO 75 mg DAILY MILAGROS Administration Digoxin 0.25 mg 09/05/17 10:00 09/07/17 09:43 Lanoxin - PO Not Given DAILY MILAGROS Enalapril Maleate 10 mg 09/05/17 10:00 09/07/17 09:45 Vasotec - PO Not Given DAILY [facility] Furosemide 40 mg 09/05/17 10:00 09/07/17 09:44 Lasix Injection - IVPUSH Not Given DAILY [facility] Metoprolol Succinate 12.5 mg 09/05/17 10:00 09/07/17 09:45 Toprol Xl - PO Not Given DAILY [facility] Warfarin Sodium 4 mg 09/04/17 18:00 09/06/17 17:46 Coumadin - PO 4 mg DAILY@1800 [facility] Administration ASSESSMENT/PLAN: Patient is a 72 year old male with a significant past medical history of atrial fibrillation (s/p ppm on Coumadin) and hypertension. Patient presents to the ED on 09/05/2017 with complaints of worsening shortness of breath over the last 48 hours prior to admission. The shortness of breath occurred during rest and with ambulation. He denies any chest pain on admission. On exam, he was in bed, resting, tolerating room air. Denies shortness of breath, denies abdominal pain, nausea or vomiting. Cardiology: Shortness of breath, improving On Lasix 40mg iv push daily Monitor daily weights, intake and output Respiratory pre and post prior to d/c PPM interrogated Awaiting cardiology further recommendations Atril fibrillation On Toprol 12.5mg daily Enalapril 10mg Digoxin 0.25mg Coumadin 4mg daily Endocrine Borderline hmga1c Will need diet modification and repeat hmga1c outpatient F.E.N. Fluids: tolerating PO Electrolytes: monitor Nutrition: low sodium Prophylaxis: DVT: ambulatory GI: deferred Disposition: full code
[2017-09-07 10:23] LABS: CHLORIDE 104 mmol/L (98-107); POTASSIUM 3.9 mmol/L (3.5-5.1); SODIUM 137 mmol/L (136-145)
[2017-09-07 10:38] LABS: ALK PHOS 93 U/L (45-117); ANION GAP 10 (8-16); BILIRUBIN,TOTAL 0.4 mg/dL (0.2-1.0); BLOOD UREA NITROGEN 31 mg/dL (7-18); CALCIUM 8.2 mg/dL (8.5-10.1); CO2 23 mmol/L (21-32); CREATININE 1.1 mg/dL (0.7-1.3); GLUCOSE,RANDOM 163 mg/dL (74-106); MAGNESIUM 1.8 mg/dL (1.8-2.4); SGOT/AST 28 U/L (15-37); SGPT/ALT 41 U/L (12-78); TOT PROT 6.1 g/dl (6.4-8.2)
[2017-09-07 12:09] LABS: INR 2.63 (0.82-1.09); PROTHROMBIN TIME (PATIENT) 29.7 SEC (9.98-11.88)
[2017-09-07] MEDS: WARFARIN NA 2 MG TABLET (UD) PO SCH (18:01)
[2017-09-08] MEDS: metoPROLOL SUCCINATE 25 MG TAB.SR.24H (FP) PO SCH (10:01)
[2017-09-08] MEDS: CLOPIDOGREL BISULFATE 75 MG TABLET (FP) PO SCH (10:01)
[2017-09-08] MEDS: DIGOXIN 0.25 MG TABLET (FP) PO SCH (10:02)
[2017-09-08 10:18] LABS: BASO % 0.7 % (0-2.0); EOS % 1.8 % (0-4.5); HEMOGLOBIN 16.3 GM/dL (11.7-16.9); LYMPH % 25.1 % (8-40); MCH 29.9 pg (25.7-33.7); MEAN CELL VOLUME 88.1 fl (80-96); MONO % 11.3 % (3.8-10.2); NEUT % 61.1 % (42.8-82.8); PLATELET COUNT 146 K/MM3 (134-434); RBC 5.46 M/mm3 (4.00-5.60); RDW 15.4 % (11.9-15.9); WHITE BLOOD COUNT 7.4 K/mm3 (4.0-10.0)
[2017-09-08 10:42] LABS: ALBUMIN 3.3 g/dl (3.4-5.0); ANION GAP 8 (8-16); BLOOD UREA NITROGEN 26 mg/dL (7-18); CHLORIDE 107 mmol/L (98-107); CO2 23 mmol/L (21-32); GLUCOSE,RANDOM 138 mg/dL (74-106); POTASSIUM 4.1 mmol/L (3.5-5.1); SGOT/AST 29 U/L (15-37); SGPT/ALT 40 U/L (12-78); SODIUM 138 mmol/L (136-145)
[2017-09-08 10:44] LABS: ALK PHOS 99 U/L (45-117); BILIRUBIN,TOTAL 0.6 mg/dL (0.2-1.0); CALCIUM 8.3 mg/dL (8.5-10.1); CREATININE 0.9 mg/dL (0.7-1.3); TOT PROT 6.7 g/dl (6.4-8.2)
[2017-09-08] MEDS: ENALAPRIL MALEATE 10 MG TABLET (FP) PO SCH (11:18)
--- NOTE | 2017-09-08 11:58 | PN ---
Progress Note, Physician History of Present Illness: seen and examined today in nad. states that he is feeling better. no overnight events. no new complaints. - Current Medication List Current Medications: Active Medications Clopidogrel Bisulfate (Plavix -) 75 mg PO DAILY [facility] Last Admin: 09/08/17 10:01 Dose: 75 mg Digoxin (Lanoxin -) 0.25 mg PO DAILY [facility] Last Admin: 09/08/17 10:02 Dose: 0.25 mg Enalapril Maleate (Vasotec -) 10 mg PO DAILY [facility] Last Admin: 09/08/17 11:18 Dose: 10 mg Furosemide (Lasix Injection -) 40 mg IVPUSH DAILY [facility] Last Admin: 09/07/17 09:44 Dose: Not Given Metoprolol Succinate (Toprol Xl -) 12.5 mg PO DAILY [facility] Last Admin: 09/08/17 10:01 Dose: 12.5 mg Warfarin Sodium (Coumadin -) 4 mg PO DAILY@1800 [facility] Last Admin: 09/07/17 18:01 Dose: 4 mg - Objective Vital Signs: Vital Signs Temperature 98.4 F 09/08/17 08:46 Pulse Rate 83 09/08/17 10:02 Respiratory Rate 20 09/08/17 08:46 Blood Pressure 130/53 09/08/17 08:46 O2 Sat by Pulse Oximetry (%) 98 09/08/17 08:43 Constitutional: Yes: Well Nourished, No Distress, Calm Eyes: Yes: WNL, Conjunctiva Clear, EOM Intact, PERRL HENT: Yes: WNL, Atraumatic, Normocephalic Neck: Yes: WNL, Supple, Trachea Midline Cardiovascular: Yes: Regular Rate and Rhythm, S1, S2. No: Bradycardia, Tachycardia, Pulse Irregular, Bruit, JVD, Gallop, Murmur, Rub, S3, S4, Varicosities Respiratory: Yes: Regular, CTA Bilaterally. No: Rales, Rhonchi, Wheezes Gastrointestinal: Yes: Normal Bowel Sounds, Soft. No: Distention, Tenderness Musculoskeletal: Yes: WNL Extremities: Yes: WNL Edema: No Peripheral Pulses WNL: Yes Peripheral Pulses: Left Doralis Pedis: 2+, Right Dorsalis Pedis: 2+ Neurological: Yes: Alert, Oriented Psychiatric: Yes: Alert, Oriented Labs: CBC, BMP 09/08/17 10:03 09/08/17 10:03 INR, PTT INR 2.63 (0.82-1.09) H 09/07/17 11:10 - ....Imaging Chest X-ray: Report Reviewed, Image Reviewed EKG: Report Reviewed, Image Reviewed Other: Report Reviewed, Image Reviewed (tele-NSR, Vpaced, PVCs) Assessment/Plan IMP: Acute on chronic systolic CHF exacerbation, possibly due to med non-compliance Underlying Ischemic CM with prior PCI PAF BiV ICD w/ batter at Elective Replacement Interval (OLINDA) REC: 1. CHF: overall euvolemic currently -Mild exacerbation -can transition back to po Lasix -Daily lytes -Echo confirmed severe LV systolic dysfunction, also severe MR -discharge planning with close outpatient f/up 2. PAF:NSR on tele -coumadin for goal INR goal 2-3 -f/up ICD interrogation -Cont. Dig. and other home meds 3. CAD: -Remote h/o PCI, chronic underlying CAD -cardiac enzymes did not trend up significantly -cont Plavix -plan is for outpatient stress test 4. BiV ICD (Medtronic): -f/up interrogation to r/o AF w/ RVR as precipitant -Battery known to be @ OLINDA, planned for outpatient generator change. 5.NSVT-stable -electrolytes wnl -outpatient f/up
[2017-09-08] MEDS: FUROSEMIDE 40 MG/4 ML INJECTABLE VIAL IVPUSH SCH (14:00)
[2017-09-08] MEDS ORDERED: FUROSEMIDE 40 MG TABLET (FP) PO ONE (14:15)
[2017-09-08 14:41] VITALS: BP 88/50; PULSE 65; TEMP 97.4
--- NOTE | 2017-09-08 14:43 | DS ---
Physical Exam: SUBJECTIVE: Patient seen and examined at the bedside. For discharge today. States he ran out of all his medications, will re-order all his medications. OBJECTIVE: Follow up appointment with Dr. Archer made on September 15 @ 2:15pm. Vital Signs Period Temp Pulse Resp BP Sys/Nunez Pulse Ox Last 24 Hr 97.4 F-98.4 F 65-90 18-29 88-130/50-79 97-98 PHYSICAL EXAM GENERAL: The patient is awake, alert, and fully oriented, in no acute distress. HEAD: Normal with no signs of trauma. EYES: PERRL, extraocular movements intact, sclera anicteric, conjunctiva clear. No ptosis. ENT: Ears normal, nares patent, oropharynx clear without exudates, moist mucous membranes. NECK: Trachea midline, full range of motion, supple. LUNGS: Breath sounds equal, clear to auscultation anteriorly HEART: air sampling and monitoring shows paced rhythm 80s with PVCs PPM interrogated ABDOMEN: Soft, nontender, nondistended, normoactive bowel sounds, no guarding, no rebound, no hepatosplenomegaly, no masses. EXTREMITIES: no edema. NEUROLOGICAL: Normal speech, gait not observed. PSYCH: Normal mood, normal affect. SKIN: Warm, dry, normal turgor, no rashes or lesions noted LABS Laboratory Results - last 24 hr 09/08/17 09/08/17 10:03 10:03 WBC 7.4 RBC 5.46 Hgb 16.3 Hct 48.0 MCV 88.1 MCH 29.9 MCHC 34.0 RDW 15.4 Plt Count 146 MPV 9.0 Neutrophils % 61.1 Lymphocytes % 25.1 Monocytes % 11.3 H Eosinophils % 1.8 Basophils % 0.7 Sodium 138 Potassium 4.1 Chloride 107 Carbon Dioxide 23 Anion Gap 8 BUN 26 H Creatinine 0.9 Creat Clearance w eGFR > 60 Random Glucose 138 H Calcium 8.3 L Magnesium 2.0 Total Bilirubin 0.6 D AST 29 ALT 40 Alkaline Phosphatase 99 Total Protein 6.7 Albumin 3.3 L HOSPITAL COURSE: Date of Admission:09/05/17 Date of Discharge: 09/08/17 ASSESSMENT/PLAN: Patient is a 72 year old male with a significant past medical history of atrial fibrillation (s/p ppm on Coumadin) and hypertension. Patient presents to the ED on 09/05/2017 with complaints of worsening shortness of breath over the last 48 hours prior to admission. The shortness of breath occurred during rest and with ambulation. He denies any chest pain on admission. On exam, he was in bed, resting, tolerating room air. Denies shortness of breath, denies abdominal pain, nausea or vomiting. Cardiology: Acute on chronic systolic CHF (congestive heart failure) (Acute) Shortness of breath, resolved On Lasix 40mg PO on discharge Biventricular ICD (implantable cardioverter-defibrillator) in place (Acute) PPM interrogated, new battery change outpatient Cardiology follow up outpatient made for September 15 @ 2:15pm PAF (paroxysmal atrial fibrillation) (Acute) Anticoagulation management encounter (Acute) On Toprol 12.5mg daily Enalapril 10mg Digoxin 0.25mg Coumadin 4mg daily All meds called into pt home pharmacy Endocrine Borderline hmga1c @ 6.3 Will need diet modification and repeat hmga1c outpatient PCP follow up Disposition: full code Minutes to complete discharge: 60 Discharge Summary Reason For Visit: SOB,ATYPICAL CHEST PAIN,TACHYCARDIA Current Active Problems Acute on chronic systolic CHF (congestive heart failure) (Acute) Anticoagulation management encounter (Acute) Biventricular ICD (implantable cardioverter-defibrillator) in place (Acute) PAF (paroxysmal atrial fibrillation) (Acute) SOB (shortness of breath) (Acute) Tachycardia (Acute) Condition: Improved - Instructions Diet, Activity, Other Instructions: Gavin Martínez: Usted tiene abby vaughn con el Dr. Ford sunita 2017 a last 2:15pm. Medicinas que usted tiene que nikos: Enalapril 10mg diaria por la manana Coumadin 4mg diaria por la manana Metoprolol Succinate (Toprol 12.5mg ) diaria por la manana Digoxin 0.25mg diaria por la manana Lasix 40mg diaria por la manana Plavix 75mg diaria por la manana Usted vas a necesitar abby prueva de esfuerzo cardiovascular con cloud doctor Liliana. Por favor de llamarme si tienes preguntas. Melba Barry, WASHING MACHINE ASSEMBLER [phone] [facility] Mr. Cristian Martínez: Please note that you have a follow up appointment with Dr. Archer September 15 at 2:15pm. Please keep the appointment. Please take the following medications: Enalapril 10mg daily in the morning Coumadin 4mg daily in the morning Metoprolol Succinate (Toprol 12.5mg ) daily in the morning Digoxin 0.25mg daily in the morning Lasix 40mg daily in the morning Plavix 75mg daily in the morning Please call me with any questions that you may have. Melba Barry, WASHING MACHINE ASSEMBLER [phone] [facility] Referrals: Bharat Archer MD [Primary Care Provider] - Disposition: HOME - Home Medications Comprehensive Discharge Medication List: Ambulatory Orders Clopidogrel Bisulfate [Plavix -] 75 mg PO DAILY #30 tablet 09/08/17 Digoxin [Lanoxin -] 0.25 mg PO DAILY #30 tablet 09/08/17 Enalapril Maleate [Vasotec -] 10 mg PO DAILY #30 tablet 09/08/17 Furosemide [Lasix] 40 mg PO DAILY #30 tablet 09/08/17 Metoprolol Succinate [Toprol XL -] 12.5 mg PO DAILY #30 tab.sr.24h 09/08/17 Warfarin Sodium [Coumadin] 4 mg PO DAILY #30 tablet 09/08/17 This patient is new to me today: No Emergency Visit: Yes ED Registration Date: 09/05/17 Care time: The patient presented to the Emergency Department on the above date and was hospitalized for further evaluation of their emergent condition. Critical Care patient: No - Discharge Referral Referred to [facility] Med P.C.: No
== END 2017-09-08 15:30 | disposition home or self-care (01) | DRG 194 ==
LOC: JER 12:44 → JERBED 15:54 → J4W 17:00 → OBSVTOIN 09-05 08:09
PROVIDERS: ADMIT Internal Medicine; ATTEND Nurse Practitioner Family
DX: I11.0 Hypertensive heart disease with heart failure (principal); I50.23 Acute on chronic systolic (congestive) heart failure; E78.5 Hyperlipidemia, unspecified; I25.10 Atherosclerotic heart disease of native coronary artery without angina pectoris; I48.0 Paroxysmal atrial fibrillation; I25.5 Ischemic cardiomyopathy; I47.2 Ventricular tachycardia; R06.02 Shortness of breath; Z91.14 Patient's other noncompliance with medication regimen; Z95.810 Presence of automatic (implantable) cardiac defibrillator; Z79.01 Long term (current) use of anticoagulants; Z95.5 Presence of coronary angioplasty implant and graft
CPT/HCPCS: 36415; 71045-TC-FY; 80048; 80053; 82550; 83036; 83735; 83880; 84100; 84484; 85025; 85610; 85730; 93005; 93010; 93306-TC; 99283-25; G0378

== ENCOUNTER 2020-07-07 10:20 | Emergency (ER) | payer OTHER | END 2020-07-07 11:51 | disposition home or self-care (01) | LOC: JERFT 10:20 | DX: S31.829A Unspecified open wound of left buttock, initial encounter (principal) | CPT/HCPCS: 99282-25 ==

== ENCOUNTER 2022-11-20 14:53 | Inpatient (IN) | payer OTHER ==
[2022-11-20 16:30] LABS: BASO % 0.7 % (0-2.0); EOS % 1.1 % (0-4.5); HEMATOCRIT 45.3 % (35.4-49); HEMOGLOBIN 15.4 GM/dL (11.7-16.9); MCH 31.3 pg (25.7-33.7); MEAN PLT VOLUME 9.9 fl (7.5-11.1); MONO % 14.2 % (3.8-10.2); PLATELET COUNT 149 10^3/uL (134-434); RBC 4.92 M/mm3 (4.00-5.60); RDW 16.4 % (11.9-15.9); WHITE BLOOD COUNT 8.3 K/mm3 (4.0-10.0)
[2022-11-20 16:49] LABS: CHLORIDE 107 mmol/L (98-107); SODIUM 138 mmol/L (136-145)
[2022-11-20 16:51] LABS: CALCIUM 9.2 mg/dL (8.5-10.1)
[2022-11-20 16:52] LABS: ALBUMIN 3.5 g/dl (3.4-5.0); BLOOD UREA NITROGEN 32.8 mg/dL (7-18); CO2 25 mmol/L (21-32); GLUCOSE,RANDOM 160 mg/dL (74-106)
[2022-11-20 16:55] LABS: CREATININE 1.5 mg/dL (0.55-1.3); SGOT/AST 426 U/L (15-37); SGPT/ALT 551 U/L (13-61)
[2022-11-20 16:56] LABS: BILIRUBIN,TOTAL 3.1 mg/dL (0.2-1); TOT PROT 7.3 g/dl (6.4-8.2)
[2022-11-20 16:58] LABS: ALK PHOS 179 U/L (45-117)
[2022-11-20] MEDS ORDERED: ALBUTEROL SO4 0.5 % INH SOLN 2.5 MG/0.5 ML VIAL.NEB. NEB ONE (16:59)
[2022-11-20 17:04] LABS: ANION GAP 6 MMOL/L (8-16); POTASSIUM 6.1 mmol/L (3.5-5.1)
[2022-11-20] MEDS ORDERED: ASPIRIN 81 MG CHEWABLE TABLETS PO ONE (17:04)
[2022-11-20] MEDS ORDERED: ASPIRIN 81 MG CHEWABLE TABLETS ONE (17:26)
[2022-11-20 18:04] LABS: POTASSIUM 4.6 mmol/L (3.5-5.1)
[2022-11-20 18:06] LABS: ALBUMIN 3.2 g/dl (3.4-5.0); BLOOD UREA NITROGEN 32.1 mg/dL (7-18)
[2022-11-20 18:09] LABS: CREATININE 1.3 mg/dL (0.55-1.3)
[2022-11-20 18:11] LABS: BILIRUBIN,TOTAL 2.9 mg/dL (0.2-1); TOT PROT 6.5 g/dl (6.4-8.2)
[2022-11-20] MEDS ORDERED: metoPROLOL SUCCINATE 25 MG TAB.SR.24H (FP) PO ONE (18:19)
[2022-11-20] MEDS: APIXABAN 5 MG TABLET PO SCH (21:32)
[2022-11-20] MEDS ORDERED: ATORVASTATIN CA 20 MG TABLET (FP) PO SCH (22:00)
[2022-11-20 23:31] VITALS: BMI 24.8
[2022-11-21 07:35] LABS: BASO % 0.3 % (0-2.0); EOS % 0.6 % (0-4.5); HEMATOCRIT 45.2 % (35.4-49); HEMOGLOBIN 15.2 GM/dL (11.7-16.9); LYMPH % 11.6 % (8-40); MCH 31.2 pg (25.7-33.7); MCHC 33.7 g/dl (32.0-35.9); MEAN CELL VOLUME 92.6 fl (80-96); MEAN PLT VOLUME 10.1 fl (7.5-11.1); MONO % 14.3 % (3.8-10.2); NEUT % 73.2 % (42.8-82.8); PLATELET COUNT 128 10^3/uL (134-434); RBC 4.88 M/mm3 (4.00-5.60); WHITE BLOOD COUNT 9.1 K/mm3 (4.0-10.0)
[2022-11-21 08:04] LABS: POTASSIUM 4.5 mmol/L (3.5-5.1)
[2022-11-21] MEDS: TAMSULOSIN HCL 0.4 MG CAP PO SCH (08:10)
[2022-11-21 08:20] LABS: CALCIUM 9.2 mg/dL (8.5-10.1)
[2022-11-21 08:21] LABS: ALBUMIN 3.3 g/dl (3.4-5.0); BLOOD UREA NITROGEN 32.4 mg/dL (7-18)
[2022-11-21 08:23] LABS: BILIRUBIN,DIRECT 2.4 mg/dL (0.0-0.2); TOT PROT 6.7 g/dl (6.4-8.2)
[2022-11-21 08:24] LABS: CREATININE 1.3 mg/dL (0.55-1.3)
[2022-11-21 08:25] LABS: BILIRUBIN,TOTAL 3.8 mg/dL (0.2-1)
[2022-11-21] MEDS ORDERED: metoPROLOL SUCCINATE 25 MG TAB.SR.24H (FP) PO SCH (10:00)
[2022-11-21] MEDS: CLOPIDOGREL BISULFATE 75 MG TABLET (FP) PO SCH (10:12)
[2022-11-21] MEDS: APIXABAN 5 MG TABLET PO SCH ×2 (10:12→21:09)
[2022-11-21 12:03] LABS: PH,URINE 5.5 (5.0-8.0); URINE APPEARANCE CLEAR; URINE BILIRUBIN 1+ (NEGATIVE); URINE COLOR DK YELLOW; URINE GLUCOSE (UA) NEGATIVE (NEGATIVE); URINE KETONE TRACE (NEGATIVE); URINE LEUK ESTERASE NEGATIVE (NEGATIVE); URINE NITRITE NEGATIVE (NEGATIVE); URINE PROTEIN NEGATIVE (NEGATIVE)
[2022-11-21 12:41] LABS: HEPATITIS B SURFACE AG MATERN NON-REACTIVE (NONREACTIVE)
[2022-11-21] MEDS ORDERED: SODIUM CHLORIDE 500 ML IV SCH (12:45)
[2022-11-21] MEDS: SOLIFENACIN SUCCINATE 5 MG TAB PO SCH (13:09)
[2022-11-22 07:23] LABS: HEMATOCRIT 42.4 % (35.4-49); HEMOGLOBIN 14.2 GM/dL (11.7-16.9); MCH 30.8 pg (25.7-33.7); MCHC 33.4 g/dl (32.0-35.9); MEAN CELL VOLUME 92.1 fl (80-96); MEAN PLT VOLUME 10.2 fl (7.5-11.1); PLATELET COUNT 123 10^3/uL (134-434); RBC 4.61 M/mm3 (4.00-5.60); RDW 16.2 % (11.9-15.9); WHITE BLOOD COUNT 9.5 K/mm3 (4.0-10.0)
[2022-11-22 07:31] LABS: POTASSIUM 4.7 mmol/L (3.5-5.1)
[2022-11-22 07:41] LABS: BLOOD UREA NITROGEN 36.2 mg/dL (7-18)
[2022-11-22 07:44] LABS: PHOSPHOROUS 3.1 mg/dL (2.5-4.9)
[2022-11-22 07:45] LABS: CREATININE 1.3 mg/dL (0.55-1.3)
[2022-11-22 07:46] LABS: BILIRUBIN,TOTAL 5.6 mg/dL (0.2-1); TOT PROT 5.9 g/dl (6.4-8.2)
[2022-11-22 10:11] LABS: BILIRUBIN,DIRECT 3.8 mg/dL (0.0-0.2)
[2022-11-22] MEDS: CLOPIDOGREL BISULFATE 75 MG TABLET (FP) PO SCH (10:19)
[2022-11-22] MEDS: TAMSULOSIN HCL 0.4 MG CAP PO SCH (10:19)
[2022-11-22] MEDS: SOLIFENACIN SUCCINATE 5 MG TAB PO SCH (10:20)
[2022-11-22 10:56] LABS: PROTHROMBIN TIME (PATIENT) 69.4 SEC (9.7-13.0)
[2022-11-22 10:59] LABS: ACTIVATED PTT 40.5 SECONDS (25.2-36.5)
[2022-11-22 11:10] LABS: INR 6.09 (0.83-1.09)
[2022-11-22] MEDS: APIXABAN 5 MG TABLET PO SCH (11:34)
[2022-11-22 12:06] LABS: PROTHROMBIN TIME (PATIENT) 64.3 SEC (9.7-13.0)
[2022-11-22 12:15] LABS: INR 5.64 (0.83-1.09)
[2022-11-22] MEDS: LACTULOSE 20 GM/30 ML UDC (FOR ORAL USE ONLY) PO SCH ×2 (14:12→17:24)
[2022-11-22 19:51] VITALS: BP 127/76; PULSE 95; RESP 20; TEMP 98
[2022-11-23] MEDS ORDERED: PANTOPRAZOLE 40 MG TABLET PO SCH (10:00)
== END 2022-11-22 20:15 | disposition short-term general hospital (02) | DRG 442 ==
LOC: JER 14:53 → JERBED 17:07 → J4W 20:30
PROVIDERS: ADMIT Internal Medicine; ATTEND Internal Medicine
DX: K72.90 Hepatic failure, unspecified without coma (principal); C85.90 Non-Hodgkin lymphoma, unspecified, unspecified site; I50.22 Chronic systolic (congestive) heart failure; N17.9 Acute kidney failure, unspecified; R74.01 Elevation of levels of liver transaminase levels; I25.10 Atherosclerotic heart disease of native coronary artery without angina pectoris; Z95.5 Presence of coronary angioplasty implant and graft; I48.0 Paroxysmal atrial fibrillation; R00.0 Tachycardia, unspecified; E78.5 Hyperlipidemia, unspecified; I10 Essential (primary) hypertension; Z95.810 Presence of automatic (implantable) cardiac defibrillator; I51.7 Cardiomegaly; R77.8 Other specified abnormalities of plasma proteins
CPT/HCPCS: 0241U-QW; 36415; 71045-TC-FY; 76700-TC; 80048; 80053; 80076; 80307; 81003; 82140; 82248; 82436; 82570; 82962; 83735; 83880; 84100; 84133; 84156; 84300; 84484; 85025; 85027; 85610; 85730; 86704; 86705; 86803; 87340; 87517; 93005; 93010; 93306-TC; 99285-25

== ENCOUNTER 2023-08-21 13:53 | Inpatient (IN) | payer OTHER ==
[2023-08-21 15:05] LABS: BASO % 0.2 % (0-2.0); EOS % 0.5 % (0-4.5); HEMOGLOBIN 13.5 GM/dL (11.7-16.9); LYMPH % 9.5 % (8-40); MCH 31.1 pg (25.7-33.7); MCHC 33.7 g/dl (32.0-35.9); MEAN CELL VOLUME 92.2 fl (80-96); MEAN PLT VOLUME 9.3 fl (7.5-11.1); MONO % 14.8 % (3.8-10.2); PLATELET COUNT 97 10^3/uL (134-434); RBC 4.34 M/mm3 (4.00-5.60); RDW 13.9 % (11.9-15.9); WHITE BLOOD COUNT 5.7 K/mm3 (4.0-10.0)
[2023-08-21] MEDS: SODIUM CHLORIDE 0.9% 500 ML INFUS.BAG IV ONE ×2 (15:36→17:08)
[2023-08-21] MEDS ORDERED: ACETAMINOPHEN INJECTION 100 ML IVPB ONE ×2 (15:41→23:57)
[2023-08-21] MEDS: ACETAMINOPHEN 1000 MG/100 ML BAG IVPB ONE (15:42)
[2023-08-21] MEDS ORDERED: PIPERACILLIN/TAZOB 4.5 GM 4.5 GM/100 ML BAG IVPB ONE (15:42)
[2023-08-21] MEDS: PIPERACILLIN/TAZOB 4.5 GM 4.5 GM in DEXTROSE 5%-WATER 100 ML IVPB ONE (15:42)
[2023-08-21] MEDS ORDERED: VANCOMYCIN 1 GRAM (PRE-DOCKED) 1,000 MG/250 ML BAG IVPB ONE (15:42)
[2023-08-21] MEDS: VANCOMYCIN 1,000 MG in DEXTROSE 5%-WATER - 250 ML IVPB ONE (15:42)
[2023-08-21] MEDS: SODIUM CHLORIDE 2,041 ML IV ONE (15:43)
[2023-08-21 15:46] LABS: INR 1.36 (0.83-1.09); PROTHROMBIN TIME (PATIENT) 15.7 SEC (9.7-13.0)
[2023-08-21 15:48] LABS: ACTIVATED PTT 34.7 SECONDS (25.2-36.5)
[2023-08-21 15:49] LABS: URINE APPEARANCE CLEAR; URINE BILIRUBIN NEGATIVE (NEGATIVE); URINE COLOR YELLOW; URINE GLUCOSE (UA) NEGATIVE (NEGATIVE); URINE KETONE NEGATIVE (NEGATIVE); URINE LEUK ESTERASE NEGATIVE (NEGATIVE); URINE NITRITE NEGATIVE (NEGATIVE); URINE PROTEIN NEGATIVE (NEGATIVE); URINE UROBILINOGEN 0.2 mg/dL (0.2-1.0)
[2023-08-21 15:52] LABS: VENOUS BASE EXCESS -2.4 mmol/L (-2-2); VENOUS O2 SATURATION 44.4 % (70-80); VENOUS PH 7.377 (7.310-7.410)
[2023-08-21 16:08] LABS: CHLORIDE 102 mmol/L (98-107); POTASSIUM 4.3 mmol/L (3.5-5.1); SODIUM 135 mmol/L (136-145)
[2023-08-21 16:10] LABS: ALBUMIN 3.6 g/dl (3.4-5.0); ANION GAP 7 mmol/L (4-13); BLOOD UREA NITROGEN 16.6 mg/dL (7-18); CALCIUM 9.3 mg/dL (8.5-10.1); CO2 26 mmol/L (21-32); GLUCOSE,RANDOM 167 mg/dL (74-106)
[2023-08-21 16:14] LABS: CREATININE 1.2 mg/dL (0.55-1.3); SGOT/AST 37 U/L (15-37); SGPT/ALT 34 U/L (13-61)
[2023-08-21 16:16] LABS: ALK PHOS 80 U/L (45-117); BILIRUBIN,TOTAL 0.4 mg/dL (0.2-1); TOT PROT 7.3 g/dl (6.4-8.2)
[2023-08-21 16:53] LABS: LACTIC ACID 2.3 mmol/L (0.4-2.0)
[2023-08-22] MEDS ORDERED: VANCOMYCIN 1 GRAM (PRE-DOCKED) 1,000 MG/250 ML BAG IVPB SCH
[2023-08-22] MEDS ORDERED: PIPERACILLIN/TAZOB 3.375 GM 3.375 GM in DEXTROSE 5%-WATER - 50 ML IVPB SCH
[2023-08-22] MEDS: ACETAMINOPHEN 1000 MG/100 ML BAG IVPB PRN (00:03)
[2023-08-22] MEDS ORDERED: LEVALBUTEROL HCL 0.31 MG/3 ML VIAL.NEB IH PRN (00:10)
[2023-08-22 01:05] VITALS: BMI 24.8
[2023-08-22] MEDS: APIXABAN 5 MG TABLET PO SCH (01:55)
[2023-08-22] MEDS: PIPERACILLIN/TAZOB 3.375 GM 4.5 GM in DEXTROSE 5%-WATER - 50 ML IVPB SCH (02:17)
[2023-08-22] MEDS: VANCOMYCIN/WATER FOR INJ (PEG) 1,000 MG/200 ML BAG IVPB SCH (03:19)
[2023-08-22 06:59] LABS: BASO % 0.4 % (0-2.0); EOS % 0.3 % (0-4.5); HEMATOCRIT 42.4 % (35.4-49); HEMOGLOBIN 13.9 GM/dL (11.7-16.9); LYMPH % 15.7 % (8-40); MCH 30.8 pg (25.7-33.7); MCHC 32.9 g/dl (32.0-35.9); MEAN CELL VOLUME 93.6 fl (80-96); MEAN PLT VOLUME 9.7 fl (7.5-11.1); MONO % 14.6 % (3.8-10.2); PLATELET COUNT 101 10^3/uL (134-434); RBC 4.53 M/mm3 (4.00-5.60); RDW 13.9 % (11.9-15.9)
[2023-08-22 07:20] LABS: POTASSIUM 4.2 mmol/L (3.5-5.1)
[2023-08-22 07:29] LABS: CALCIUM 8.4 mg/dL (8.5-10.1)
[2023-08-22 07:30] LABS: CREATININE 1.1 mg/dL (0.55-1.3)
[2023-08-22 07:32] LABS: ALBUMIN 3.1 g/dl (3.4-5.0); BLOOD UREA NITROGEN 16.6 mg/dL (7-18); TOT PROT 6.3 g/dl (6.4-8.2)
[2023-08-22 07:34] LABS: PHOSPHOROUS 3.6 mg/dL (2.5-4.9)
[2023-08-22 07:36] LABS: BILIRUBIN,TOTAL 0.6 mg/dL (0.2-1)
[2023-08-22] MEDS: TAMSULOSIN HCL 0.4 MG CAP PO SCH (08:06)
[2023-08-22] MEDS ORDERED: PATIENT'S OWN MEDICATION (NON-FORMULARY) (Alfuzosin Hcl [Alfuzosin Hcl Er] 10 MG Tab.Er.24 PO SCH (10:00)
[2023-08-22] MEDS: metoPROLOL SUCCINATE 25 MG TAB.SR.24H (FP) PO SCH (11:28)
[2023-08-22] MEDS: SODIUM CHLORIDE 1,000 ML IV SCH (13:14)
[2023-08-22 15:56] LABS: EPI CELLS 2 /uL (0-25.1); HYALINE CASTS 0 /uL (0-3.1); URINE APPEARANCE CLEAR; URINE BACTERIA 0 /uL (0-1359); URINE BILIRUBIN NEGATIVE (NEGATIVE); URINE COLOR YELLOW; URINE GLUCOSE (UA) NEGATIVE (NEGATIVE); URINE KETONE NEGATIVE (NEGATIVE); URINE LEUK ESTERASE NEGATIVE (NEGATIVE); URINE NITRITE NEGATIVE (NEGATIVE); URINE PROTEIN NEGATIVE (NEGATIVE); URINE RBC 994 /uL (0-23.9); URINE UROBILINOGEN 0.2 mg/dL (0.2-1.0); URINE WBC 11 /uL (0-25.8)
[2023-08-22] MEDS: PIPERACILLIN/TAZOB 4.5 GM 4.5 GM in DEXTROSE 5%-WATER 100 ML IVPB SCH (17:38)
[2023-08-23] MEDS ORDERED: VANCOMYCIN 1 GRAM (PRE-DOCKED) 1,000 MG/250 ML BAG IVPB SCH
[2023-08-23] MEDS ORDERED: PIPERACILLIN/TAZOB 3.375 GM 4.5 GM in DEXTROSE 5%-WATER - 50 ML IVPB SCH (02:00)
[2023-08-23] MEDS ORDERED: PIPERACILLIN/TAZOBACTAM 4.5 GM VIAL IVPB ONE (02:47)
[2023-08-23] MEDS: VANCOMYCIN/WATER FOR INJ (PEG) 1,000 MG/200 ML BAG IVPB SCH (06:24)
[2023-08-23 07:45] LABS: HEMATOCRIT 38.7 % (35.4-49); MCH 31.1 pg (25.7-33.7); MCHC 33.6 g/dl (32.0-35.9); MEAN CELL VOLUME 92.5 fl (80-96); MEAN PLT VOLUME 8.8 fl (7.5-11.1); PLATELET COUNT 100 10^3/uL (134-434); RBC 4.19 M/mm3 (4.00-5.60); RDW 13.4 % (11.9-15.9)
[2023-08-23 07:53] LABS: POTASSIUM 4.1 mmol/L (3.5-5.1)
[2023-08-23 08:02] LABS: BLOOD UREA NITROGEN 15.6 mg/dL (7-18)
[2023-08-23 08:03] LABS: BILIRUBIN,TOTAL 0.5 mg/dL (0.2-1)
[2023-08-23 08:04] LABS: TOT PROT 6.4 g/dl (6.4-8.2)
[2023-08-23 08:12] LABS: CREATININE 0.9 mg/dL (0.55-1.3)
[2023-08-23] MEDS: CEFTRIAXONE 1 GM in DEXTROSE 5%-WATER - 50 ML IVPB SCH (18:48)
[2023-08-24 08:14] LABS: BASO % 0.5 % (0-2.0); HEMATOCRIT 43.5 % (35.4-49); HEMOGLOBIN 14.3 GM/dL (11.7-16.9); MCH 30.6 pg (25.7-33.7); MCHC 32.9 g/dl (32.0-35.9); MEAN CELL VOLUME 92.9 fl (80-96); MEAN PLT VOLUME 9.7 fl (7.5-11.1); MONO % 13.4 % (3.8-10.2); NEUT % 56.1 % (42.8-82.8); PLATELET COUNT 106 10^3/uL (134-434); RBC 4.69 M/mm3 (4.00-5.60); RDW 13.4 % (11.9-15.9); WHITE BLOOD COUNT 5.7 K/mm3 (4.0-10.0)
[2023-08-24 08:17] LABS: POTASSIUM 4.1 mmol/L (3.5-5.1)
[2023-08-24 08:19] LABS: ALBUMIN 3.2 g/dl (3.4-5.0); CALCIUM 8.6 mg/dL (8.5-10.1)
[2023-08-24 08:21] LABS: BLOOD UREA NITROGEN 18.3 mg/dL (7-18); MAGNESIUM 1.7 mg/dL (1.8-2.4)
[2023-08-24 08:23] LABS: CREATININE 1.1 mg/dL (0.55-1.3); PHOSPHOROUS 3.2 mg/dL (2.5-4.9)
[2023-08-24 08:24] LABS: BILIRUBIN,TOTAL 0.5 mg/dL (0.2-1); TOT PROT 6.9 g/dl (6.4-8.2)
[2023-08-24] MEDS: DOXYCYCLINE HYCLATE 100 MG CAPSULE PO SCH (09:50)
[2023-08-24] MEDS: MAGNESIUM 1GM/D5W - 1 GM/100 ML IVPB IVPB ONE (09:54)
[2023-08-24 10:45] VITALS: BP 100/58; PULSE 71; RESP 20; TEMP 98.4
== END 2023-08-24 14:11 | disposition home or self-care (01) | DRG 194 ==
LOC: JER 13:53 → JERBED 18:59 → OBSVTOIN 08-22 00:04 → J4W 08-22 01:20
PROVIDERS: ADMIT Internal Medicine; ATTEND Internal Medicine
DX: J18.9 Pneumonia, unspecified organism (principal); I24.89 Other forms of acute ischemic heart disease; I50.22 Chronic systolic (congestive) heart failure; R06.00 Dyspnea, unspecified; R05.9 Cough, unspecified; R42 Dizziness and giddiness; N40.0 Benign prostatic hyperplasia without lower urinary tract symptoms
CPT/HCPCS: 0241U-QW; 36415; 71045-TC-FY; 80053; 80061; 81003; 82550; 82803; 83605; 83735; 84100; 84484; 85025; 85027; 85610; 85730; 86850; 86900; 86901; 87040; 87081; 87086; 87899; 93005; 93010; 97116-GP; 97161-GP; 99291; G0378; J0131

== ENCOUNTER 2023-09-27 00:43 | Observation (INO) | payer OTHER ==
[2023-09-27 00:49] VITALS: BMI 24.2
[2023-09-27 03:02] LABS: POTASSIUM 5.7 mmol/L (3.5-5.1)
[2023-09-27 03:04] LABS: ALBUMIN 3.4 g/dl (3.4-5.0); BLOOD UREA NITROGEN 21.7 mg/dL (7-18); CALCIUM 9.2 mg/dL (8.5-10.1)
[2023-09-27 03:07] LABS: CREATININE 1.2 mg/dL (0.55-1.3)
[2023-09-27 03:09] LABS: BILIRUBIN,TOTAL 0.6 mg/dL (0.2-1); TOT PROT 7.2 g/dl (6.4-8.2)
[2023-09-27 03:12] LABS: N-TERMINAL BNP 2695.9 pg/ml (5-450)
[2023-09-27 03:14] LABS: INR 1.4 (0.83-1.09); PROTHROMBIN TIME (PATIENT) 16.2 SEC (9.7-13.0)
[2023-09-27 03:17] LABS: BASO % 0.2 % (0-2.0); EOS % 0.2 % (0-4.5); HEMATOCRIT 43.6 % (35.4-49); HEMOGLOBIN 14.6 GM/dL (11.7-16.9); LYMPH % 4.3 % (8-40); MCH 30.4 pg (25.7-33.7); MCHC 33.5 g/dl (32.0-35.9); MEAN CELL VOLUME 90.6 fl (80-96); MEAN PLT VOLUME 9.3 fl (7.5-11.1); MONO % 8.4 % (3.8-10.2); NEUT % 86.9 % (42.8-82.8); PLATELET COUNT 128 10^3/uL (134-434); RBC 4.82 M/mm3 (4.00-5.60); RDW 15.5 % (11.9-15.9); WHITE BLOOD COUNT 11.8 K/mm3 (4.0-10.0)
[2023-09-27 03:17] LABS: ACTIVATED PTT 28.8 SECONDS (25.2-36.5)
[2023-09-27 03:18] LABS: EPI CELLS 8 /uL (0-25.1); HYALINE CASTS 0 /uL (0-3.1); PH,URINE 6.5 (5.0-8.0); URINE APPEARANCE CLOUDY; URINE BACTERIA 20 /uL (0-1359); URINE BILIRUBIN NEGATIVE (NEGATIVE); URINE COLOR YELLOW; URINE GLUCOSE (UA) NEGATIVE (NEGATIVE); URINE KETONE NEGATIVE (NEGATIVE); URINE LEUK ESTERASE 2+ (NEGATIVE); URINE NITRITE NEGATIVE (NEGATIVE); URINE PROTEIN TRACE (NEGATIVE); URINE RBC 3596 /uL (0-23.9); URINE WBC 1068 /uL (0-25.8)
[2023-09-27 03:33] LABS: LACTIC ACID 3.7 mmol/L (0.4-2.0)
[2023-09-27] MEDS ORDERED: CEFTRIAXONE 1 GM/50 ML BAG ONE (03:52)
[2023-09-27] MEDS: SODIUM CHLORIDE 0.9% 500 ML INFUS.BAG IV ONE (03:57)
[2023-09-27] MEDS ORDERED: FUROSEMIDE 40 MG TABLET (FP) ONE (09:36)
[2023-09-27] MEDS ORDERED: CLOPIDOGREL BISULFATE 75 MG TABLET (FP) ONE (09:37)
[2023-09-27] MEDS: SPIRONOLACTONE 25 MG TABLET PO SCH (09:41)
[2023-09-27] MEDS: FUROSEMIDE 40 MG TABLET (FP) PO SCH (09:42)
[2023-09-27] MEDS: metoPROLOL SUCCINATE 25 MG TAB.SR.24H (FP) PO SCH (09:42)
[2023-09-27] MEDS: SACUBITRIL/VALSARTAN 24 MG-26 MG TABLET PO SCH (09:42)
[2023-09-27] MEDS: TAMSULOSIN HCL 0.4 MG CAP PO SCH (09:42)
[2023-09-27] MEDS: CLOPIDOGREL BISULFATE 75 MG TABLET (FP) PO SCH (09:42)
[2023-09-27] MEDS: PATIENT'S OWN MEDICATION (NON-FORMULARY) (Alfuzosin Hcl [Alfuzosin Hcl Er] 10 MG Tab.Er.24 PO SCH (09:42)
[2023-09-28] MEDS: CEFTRIAXONE 1 GM in DEXTROSE 5%-WATER - 50 ML IVPB SCH (05:34)
[2023-09-28 09:51] LABS: BASO % 0.3 % (0-2.0); EOS % 0.2 % (0-4.5); HEMATOCRIT 44.7 % (35.4-49); HEMOGLOBIN 14.6 GM/dL (11.7-16.9); LYMPH % 14.2 % (8-40); MCH 29.8 pg (25.7-33.7); MCHC 32.6 g/dl (32.0-35.9); MEAN CELL VOLUME 91.4 fl (80-96); MEAN PLT VOLUME 9.4 fl (7.5-11.1); MONO % 11.8 % (3.8-10.2); NEUT % 73.5 % (42.8-82.8); PLATELET COUNT 124 10^3/uL (134-434); RBC 4.89 M/mm3 (4.00-5.60); RDW 15.2 % (11.9-15.9); WHITE BLOOD COUNT 7.3 K/mm3 (4.0-10.0)
[2023-09-28 10:07] LABS: POTASSIUM 4.1 mmol/L (3.5-5.1)
[2023-09-28 10:09] LABS: CALCIUM 9.1 mg/dL (8.5-10.1)
[2023-09-28 10:11] LABS: BLOOD UREA NITROGEN 21.8 mg/dL (7-18)
[2023-09-28 10:14] LABS: CREATININE 1.3 mg/dL (0.55-1.3)
[2023-09-28] MEDS: APIXABAN 5 MG TABLET PO SCH (14:17)
[2023-09-28] MEDS: METOPROLOL TARTRATE 25 MG TABLET (FP) PO ONE (18:22)
[2023-09-28] MEDS: metoPROLOL SUCCINATE 25 MG TAB.SR.24H (FP) PO SCH (21:49)
[2023-09-29 06:38] VITALS: RESP 19
[2023-09-29 07:39] LABS: HEMOGLOBIN 14.4 GM/dL (11.7-16.9); MCH 29.8 pg (25.7-33.7); MCHC 32.7 g/dl (32.0-35.9); MEAN CELL VOLUME 91.3 fl (80-96); MEAN PLT VOLUME 8.9 fl (7.5-11.1); PLATELET COUNT 136 10^3/uL (134-434); RBC 4.82 M/mm3 (4.00-5.60); RDW 14.9 % (11.9-15.9); WHITE BLOOD COUNT 11.4 K/mm3 (4.0-10.0)
[2023-09-29 08:04] LABS: CHLORIDE 101 mmol/L (98-107); POTASSIUM 3.9 mmol/L (3.5-5.1); SODIUM 133 mmol/L (136-145)
[2023-09-29 08:07] LABS: ALBUMIN 3.2 g/dl (3.4-5.0); ANION GAP 4 mmol/L (4-13); BLOOD UREA NITROGEN 22.4 mg/dL (7-18); CO2 28 mmol/L (21-32); GLUCOSE,RANDOM 117 mg/dL (74-106); MAGNESIUM 1.8 mg/dL (1.8-2.4)
[2023-09-29 08:10] LABS: BILIRUBIN,DIRECT 0.1 mg/dL (0.0-0.2); CREATININE 1.2 mg/dL (0.55-1.3); PHOSPHOROUS 2.6 mg/dL (2.5-4.9); SGOT/AST 66 U/L (15-37); SGPT/ALT 47 U/L (13-61)
[2023-09-29 08:12] LABS: TOT PROT 6.8 g/dl (6.4-8.2)
[2023-09-29 08:13] LABS: BILIRUBIN,TOTAL 0.5 mg/dL (0.2-1)
[2023-09-29 08:14] LABS: ALK PHOS 72 U/L (45-117)
[2023-09-29 13:09] VITALS: BP 102/64; PULSE 90; TEMP 98.2
== END 2023-09-29 15:05 | disposition home or self-care (01) ==
LOC: JER 00:43 → JERBED 03:41 → J4W 12:24
PROVIDERS: ADMIT Internal Medicine; ATTEND Internal Medicine
PROC: 3E03329 Introduction of Other Anti-infective into Peripheral Vein, Percutaneous Approach (ICD-10-PCS; principal; 2023-09-27)
PROC: 3E0337Z Introduction of Electrolytic and Water Balance Substance into Peripheral Vein, Percutaneous Approach (ICD-10-PCS; 2023-09-27)
DX: N39.0 Urinary tract infection, site not specified (principal); I11.0 Hypertensive heart disease with heart failure; I48.91 Unspecified atrial fibrillation; C85.90 Non-Hodgkin lymphoma, unspecified, unspecified site; Z95.5 Presence of coronary angioplasty implant and graft; R06.01 Orthopnea; I50.20 Unspecified systolic (congestive) heart failure; R31.9 Hematuria, unspecified; I48.0 Paroxysmal atrial fibrillation; I21.4 Non-ST elevation (NSTEMI) myocardial infarction; Z79.01 Long term (current) use of anticoagulants; R77.8 Other specified abnormalities of plasma proteins; Z95.0 Presence of cardiac pacemaker; Z86.718 Personal history of other venous thrombosis and embolism
CPT/HCPCS: 36415; 71045-TC-FY; 76856-TC; 80048; 80053; 80076; 81003; 82550; 83605; 83735; 83880; 84100; 84484; 85025; 85027; 85610; 85730; 87040; 87086; 93005; 93010; 96365; 96375; 99285-25; G0378

== ENCOUNTER 2023-12-09 15:31 | Observation (INO) | payer OTHER ==
[2023-12-09 19:10] LABS: BASO % 0.2 % (0-2.0); EOS % 0.1 % (0-4.5); HEMATOCRIT 47.8 % (35.4-49); LYMPH % 8.2 % (8-40); MCH 30.2 pg (25.7-33.7); MCHC 33.4 g/dl (32.0-35.9); MEAN CELL VOLUME 90.3 fl (80-96); MEAN PLT VOLUME 9.2 fl (7.5-11.1); MONO % 8.6 % (3.8-10.2); NEUT % 82.9 % (42.8-82.8); PLATELET COUNT 141 10^3/uL (134-434); RBC 5.29 M/mm3 (4.00-5.60); RDW 15.2 % (11.9-15.9); WHITE BLOOD COUNT 18.7 K/mm3 (4.0-10.0)
[2023-12-09 19:15] LABS: INR 1.92 (0.83-1.09); PROTHROMBIN TIME (PATIENT) 21.3 SEC (9.7-13.0)
[2023-12-09 19:17] LABS: ACTIVATED PTT 33.9 SECONDS (25.2-36.5)
[2023-12-09 19:23] LABS: POTASSIUM 4.4 mmol/L (3.5-5.1)
[2023-12-09 19:26] LABS: BLOOD UREA NITROGEN 30.8 mg/dL (7-18); MAGNESIUM 2.2 mg/dL (1.8-2.4)
[2023-12-09 19:29] LABS: CREATININE 1.5 mg/dL (0.55-1.3); PHOSPHOROUS 3.2 mg/dL (2.5-4.9)
[2023-12-09 19:30] LABS: BILIRUBIN,TOTAL 1.9 mg/dL (0.2-1)
[2023-12-09 19:31] LABS: TOT PROT 8.2 g/dl (6.4-8.2)
[2023-12-09 19:34] LABS: N-TERMINAL BNP 2684.7 pg/ml (5-450)
[2023-12-09 19:39] LABS: VENOUS BASE EXCESS -0.4 mmol/L (-2-2); VENOUS O2 SATURATION 53.1 % (70-80); VENOUS PCO2 41.6 mmHg (38-52); VENOUS PH 7.39 (7.310-7.410)
[2023-12-09] MEDS: SODIUM CHLORIDE 0.9% 500 ML INFUS.BAG IV ONE (19:42)
[2023-12-09 20:53] LABS: BILIRUBIN,DIRECT 0.5 mg/dL (0.0-0.2)
[2023-12-09 20:54] LABS: EPI CELLS 4 /uL (0-25.1); HYALINE CASTS 0 /uL (0-3.1); PH,URINE 6.5 (5.0-8.0); URINE APPEARANCE CLOUDY; URINE BACTERIA 3363 /uL (0-1359); URINE BILIRUBIN NEGATIVE (NEGATIVE); URINE COLOR DK YELLOW; URINE GLUCOSE (UA) NEGATIVE (NEGATIVE); URINE KETONE NEGATIVE (NEGATIVE); URINE LEUK ESTERASE 3+ (NEGATIVE); URINE NITRITE NEGATIVE (NEGATIVE); URINE PROTEIN NEGATIVE (NEGATIVE); URINE RBC 13 /uL (0-23.9); URINE WBC 457 /uL (0-25.8)
[2023-12-10 01:19] VITALS: BMI 23.1
[2023-12-10] MEDS: CEFTRIAXONE 1 GM in DEXTROSE 5%-WATER - 50 ML IVPB SCH (02:06)
[2023-12-10] MEDS ORDERED: HEPARIN NA (PORCINE) 5,000 UNITS/ML 1ML VIAL SQ SCH (06:00)
[2023-12-10 08:34] LABS: HEMATOCRIT 42.9 % (35.4-49); HEMOGLOBIN 14.1 GM/dL (11.7-16.9); MCHC 32.9 g/dl (32.0-35.9); MEAN CELL VOLUME 91.1 fl (80-96); MEAN PLT VOLUME 9.8 fl (7.5-11.1); PLATELET COUNT 121 10^3/uL (134-434); RBC 4.72 M/mm3 (4.00-5.60); WHITE BLOOD COUNT 17.4 K/mm3 (4.0-10.0)
[2023-12-10 08:55] LABS: POTASSIUM 4.3 mmol/L (3.5-5.1)
[2023-12-10 09:07] LABS: TOT PROT 6.9 g/dl (6.4-8.2)
[2023-12-10 09:08] LABS: ALBUMIN 3.2 g/dl (3.4-5.0); CALCIUM 9.1 mg/dL (8.5-10.1)
[2023-12-10 09:09] LABS: BLOOD UREA NITROGEN 25.9 mg/dL (7-18); CREATININE 1.1 mg/dL (0.55-1.3); PHOSPHOROUS 2.3 mg/dL (2.5-4.9)
[2023-12-10 09:10] LABS: BILIRUBIN,TOTAL 1.7 mg/dL (0.2-1)
[2023-12-10 09:11] LABS: BILIRUBIN,DIRECT 0.4 mg/dL (0.0-0.2)
[2023-12-10] MEDS: CLOPIDOGREL BISULFATE 75 MG TABLET (FP) PO SCH (09:16)
[2023-12-10] MEDS: metoPROLOL SUCCINATE 25 MG TAB.SR.24H (FP) PO SCH (09:16)
[2023-12-10] MEDS: APIXABAN 5 MG TABLET PO SCH (09:16)
[2023-12-10] MEDS: TAMSULOSIN HCL 0.4 MG CAP PO SCH (09:16)
[2023-12-10] MEDS ORDERED: SPIRONOLACTONE 25 MG TABLET PO SCH (10:00)
[2023-12-10] MEDS ORDERED: FUROSEMIDE 40 MG TABLET (FP) PO SCH (10:00)
[2023-12-10] MEDS ORDERED: SOLIFENACIN SUCCINATE 5 MG TAB PO SCH (10:00)
[2023-12-10] MEDS ORDERED: SACUBITRIL/VALSARTAN 24 MG-26 MG TABLET PO SCH (10:00)
[2023-12-10] MEDS: EMPAGLIFLOZIN (JARDIANCE) 10 MG TABLET PO SCH (11:10)
[2023-12-11 07:55] LABS: BASO % 0.3 % (0-2.0); HEMATOCRIT 42.6 % (35.4-49); HEMOGLOBIN 14.3 GM/dL (11.7-16.9); LYMPH % 18.6 % (8-40); MCH 30.3 pg (25.7-33.7); MCHC 33.6 g/dl (32.0-35.9); MEAN CELL VOLUME 90.1 fl (80-96); MEAN PLT VOLUME 9.3 fl (7.5-11.1); MONO % 11.3 % (3.8-10.2); NEUT % 68.8 % (42.8-82.8); PLATELET COUNT 123 10^3/uL (134-434); RBC 4.72 M/mm3 (4.00-5.60); RDW 15.2 % (11.9-15.9)
[2023-12-11 08:01] LABS: POTASSIUM 4.5 mmol/L (3.5-5.1)
[2023-12-11 08:14] LABS: ALBUMIN 3.1 g/dl (3.4-5.0)
[2023-12-11 08:15] LABS: BLOOD UREA NITROGEN 23.2 mg/dL (7-18)
[2023-12-11 08:17] LABS: CREATININE 1.1 mg/dL (0.55-1.3)
[2023-12-11 08:19] LABS: TOT PROT 6.6 g/dl (6.4-8.2)
[2023-12-11] MEDS: PANTOPRAZOLE 40 MG TABLET PO SCH (09:39)
[2023-12-11 23:42] VITALS: RESP 16
[2023-12-12 13:56] VITALS: BP 112/68; PULSE 82; TEMP 97.6
== END 2023-12-12 13:57 | disposition home or self-care (01) ==
LOC: JER 15:31 → INTOOBSV 20:21 → UNDOADMOB 20:21 → JERBED 20:21 → J4S 12-10 00:26
PROVIDERS: ADMIT Internal Medicine; ATTEND Nurse Practitioner
PROC: 3E03329 Introduction of Other Anti-infective into Peripheral Vein, Percutaneous Approach (ICD-10-PCS; principal; 2023-12-09)
PROC: 3E0337Z Introduction of Electrolytic and Water Balance Substance into Peripheral Vein, Percutaneous Approach (ICD-10-PCS; 2023-12-09)
DX: N39.0 Urinary tract infection, site not specified (principal); I25.10 Atherosclerotic heart disease of native coronary artery without angina pectoris; R79.89 Other specified abnormal findings of blood chemistry; R53.1 Weakness; I48.91 Unspecified atrial fibrillation; Z79.01 Long term (current) use of anticoagulants; Z95.810 Presence of automatic (implantable) cardiac defibrillator; I50.9 Heart failure, unspecified; Z95.5 Presence of coronary angioplasty implant and graft; K59.00 Constipation, unspecified; Z85.72 Personal history of non-Hodgkin lymphomas; R62.7 Adult failure to thrive; I24.89 Other forms of acute ischemic heart disease; F79 Unspecified intellectual disabilities; Z86.718 Personal history of other venous thrombosis and embolism; I42.9 Cardiomyopathy, unspecified
CPT/HCPCS: 0241U-QW; 36415; 71045-TC-FY; 74176-TC; 76775-TC; 80053; 81003; 82140; 82248; 82803; 83690; 83735; 83880; 84100; 84484; 85025; 85027; 85610; 85730; 87040; 87086; 87186; 93005; 93010; 96365; 97116-GP; 97162-GP; 99285-25; G0378

== ENCOUNTER 2024-05-31 15:50 | Emergency (ER) | payer OTHER ==
[2024-05-31 16:08] VITALS: BMI 23.3
[2024-05-31 17:07] VITALS: TEMP 97.1
[2024-05-31 18:37] LABS: BASO % 0.6 % (0-2.0); EOS % 1.7 % (0-4.5); HEMATOCRIT 51.5 % (35.4-49); HEMOGLOBIN 16.8 GM/dL (11.7-16.9); LYMPH % 43.5 % (8-40); MCH 29.9 pg (25.7-33.7); MCHC 32.7 g/dl (32.0-35.9); MEAN CELL VOLUME 91.6 fl (80-96); MEAN PLT VOLUME 9.5 fl (7.5-11.1); MONO % 9.6 % (3.8-10.2); NEUT % 44.6 % (42.8-82.8); PLATELET COUNT 152 10^3/uL (134-434); RBC 5.62 M/mm3 (4.00-5.60); RDW 15.6 % (11.9-15.9); WHITE BLOOD COUNT 5.3 K/mm3 (4.0-10.0)
[2024-05-31 18:46] LABS: ACTIVATED PTT 24.3 SECONDS (25.2-36.5); INR 1.16 (0.83-1.09); PROTHROMBIN TIME (PATIENT) 13.3 SEC (9.7-13.0)
[2024-05-31 18:57] LABS: CHLORIDE 106 mmol/L (98-107); SODIUM 138 mmol/L (136-145)
[2024-05-31] MEDS ORDERED: CEFTRIAXONE 1 G/50 ML PREMIX 50 ML IVPB ONE (18:58)
[2024-05-31 18:59] LABS: CALCIUM 9.6 mg/dL (8.5-10.1); CO2 29 mmol/L (21-32)
[2024-05-31 19:00] LABS: ALBUMIN 3.5 g/dl (3.4-5.0); GLUCOSE,RANDOM 96 mg/dL (74-106)
[2024-05-31 19:02] LABS: CREATININE 1.3 mg/dL (0.55-1.3)
[2024-05-31] MEDS: CEFTRIAXONE 1,000 MG in DEXTROSE 5%-WATER - 50 ML IVPB ONE (19:02)
[2024-05-31 19:03] LABS: SGOT/AST 131 U/L (15-37)
[2024-05-31 19:04] LABS: BILIRUBIN,TOTAL 0.6 mg/dL (0.2-1); TOT PROT 8.3 g/dl (6.4-8.2)
[2024-05-31 19:05] LABS: ALK PHOS 130 U/L (45-117)
[2024-05-31 19:09] LABS: ANION GAP 3 mmol/L (4-13); POTASSIUM 6.5 mmol/L (3.5-5.1); SGPT/ALT 55 U/L (13-61)
[2024-05-31] MEDS ORDERED: VANCOMYCIN/WATER 1250 MG 1,250 MG/250 ML BAG IVPB ONE (21:17)
[2024-05-31] MEDS: VANCOMYCIN 1,250 MG in DEXTROSE 5%-WATER - 250 ML IVPB ONE (21:31)
[2024-06-01 04:53] LABS: CHLORIDE 105 mmol/L (98-107); SODIUM 137 mmol/L (136-145)
[2024-06-01 04:55] LABS: ALBUMIN 3.6 g/dl (3.4-5.0); CALCIUM 9.8 mg/dL (8.5-10.1)
[2024-06-01 04:56] LABS: BLOOD UREA NITROGEN 19.9 mg/dL (7-18); CO2 27 mmol/L (21-32); GLUCOSE,RANDOM 118 mg/dL (74-106)
[2024-06-01 04:59] LABS: CREATININE 1.3 mg/dL (0.55-1.3); SGOT/AST 121 U/L (15-37)
[2024-06-01 05:00] LABS: BILIRUBIN,TOTAL 1.3 mg/dL (0.2-1); TOT PROT 8.8 g/dl (6.4-8.2)
[2024-06-01 05:01] LABS: ALK PHOS 132 U/L (45-117)
[2024-06-01 05:20] LABS: ANION GAP 4 mmol/L (4-13); POTASSIUM 7.2 mmol/L (3.5-5.1); SGPT/ALT 53 U/L (13-61)
[2024-06-01 05:42] VITALS: BP 110/70; PULSE 87; RESP 12
== END 2024-06-01 06:03 | disposition short-term general hospital (02) ==
LOC: JER 15:50
DX: T82.7XXA Infection and inflammatory reaction due to other cardiac and vascular devices, implants and grafts, initial encounter (principal)
CPT/HCPCS: 36415; 71046-TC-FY; 80053; 84484; 85025; 85610; 85651; 85730; 86140; 87040; 87070; 87186; 87205; 93005; 93010; 96365; 96367; 99285-25